=== PATIENT | male | born 1965 | race Caucasian/White ===

== ENCOUNTER 2020-01-27 12:30 | Outpatient (CLI) | payer OTHER, BC, SELFPAY ==
--- NOTE | ~2020-01-27 | MR_ITS ---
EXAMINATION: MR brain IAC wo con DATE: 01/27/2020 13:38 INDICATION: Headache. Dizziness and giddiness. TECHNIQUE: Magnetic resonance imaging (MRI) of the brain, brainstem, and internal auditory canals was performed without intravenous contrast. Sequences included sagittal and axial T1-weighted FSE, axial diffusion-weighted FS EPI, axial T2*-weighted GRE, axial T2-weighted FLAIR Propeller, axial T2-weigh tirso Propeller, small aydiw-ge-lnof coronal FIESTA, small scbot-ia-qwmy coronal T1-weighted FSE, and s mall eplwv-fw-digy axial T1-weighted SPGR. Apparent diffusion coefficient (ADC) maps were created. COMPARISON: None. FINDINGS: There is no intracranial hemorrhage, acute infarction, or abnormal intracranial mass lesion . The ventricles are normal in size. The orbits are normal. There is mild mucosal thickening in the e thmoid sinuses. The internal auditory canals and inner and middle ears are normal. The mastoid air ce lls are normal. IMPRESSION: 1. Normal brain. Reviewed, dictated and finalized at location A. IMPRESSION: 1. Normal brain.
== END 2020-01-27 12:31 | disposition home or self-care (01) ==
PROVIDERS: PCP Family Medicine; Visit Provider Physician Assistant
DX: R51 Headache (principal); R42 Dizziness and giddiness
CPT/HCPCS: 70551

== ENCOUNTER → 2021-05-10 00:25 | Outpatient (CLI) | payer OTHER, SELFPAY ==
[2021-05-10 21:59] LABS: SARS-CoV-2 RNA PCR Positive
== END ==
PROVIDERS: PCP Family Medicine; Visit Provider Physician Assistant
DX: U07.1 COVID-19 (principal)
CPT/HCPCS: C9803; U0003; U0005

== ENCOUNTER 2021-08-18 14:08 | Outpatient (RCR) | payer OTHER, SELFPAY ==
--- NOTE | 2021-08-18 15:44 | PTOPEVAL ---
PHYSICAL THERAPY EVALUATION Thank you for referring Anthony Jones to [facility].? Antonino was evaluated for the dx of BPPV/dizzinesss. The patient is scheduled to be seen for therapy?1x/week or prn per symptoms response, for up to 4 weeks. Please review, sign, date and return this plan of care LÓPEZ. I agree with and certify that the following plan of care is medically necessary. Referring Physician Date Attending Provider: KERRY RomanPT Outpatient Evaluation Start: 08/18/21 14:26 Freq: Status: Active Protocol: Document 08/18/21 14:26 MLV (Rec: 08/18/21 15:28 [facility] [id number]) Therapy Assessment Status Assessment Status Assessment Status Evaluation Evaluation Information Problem Diagnosis vertigo/possible BPPV Onset 06/24 Cause none Additional Evaluation Detail The patient reports a sudden onset dizziness starting in June. The patient had a bout of dizziness 5 years ago, received steroids and got better. He was given steroids again but it didn't work. The patient reports having symptoms with laying to his side, severe. The patient tried Kathryn exercises but it didn't help. The patient has had headaches but have gone away now. The dizziness has decreased in intensity and frequency, but still has occasions. 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 Pain Assessment Timing of Pain Assessment Timing of Pain Assessment Assessment Self Report Self Report Pain Level 0 Pain Score Pain Score 0: Self Report Cervical and Lumbar ROM Cervical ROM Reason Not Measured WFL/Left,WFL/Right Upper Extremity Range of Motion General Upper Extremity Range of Motion Reason Not Measured WFL/Left,WFL/Right Upper Extremity Muscle Strength Testing General Upper Extremity Strength Reason Not Measured WFL/Left,WFL/Right Posture Posture Standing Position Head/C-Spine Posture Forward Head Thoracic Spine Posture Neutral Lumbar Spine Posture Flattened Shoulder Posture (L) Rounded,(R) Rounded,(L) Forward,(R) Forward Scapula Posture (L) Protracted,(R) Protracted Arm Posture (L) Internally Rotated,(R)
--- NOTE | 2021-08-25 11:04 | PCPTNOTE ---
PT called patient to check on symptoms and status of tolerance to the exercise. The patient was unavailable-left message
--- NOTE | 2021-09-10 11:31 | PCPTNOTE ---
PHYSICAL THERAPY DISCHARGE Attending Provider: KERRY Roman Patient:Anthony Jones Date of :1965 Patient has not had relief of dizzy symptoms with vestibular exercises per phone conversation; therefore he will be discharged at this time. Patient?s initial visit was on 08/18/2021 14:30 and he had a total of 1 visits and 3 weekly phone checks. The goals have been partially met. Thank you for referring this patient to [facility]. Please review, sign, date and return this discharge summary LÓPEZ. I have been updated about the patient's current status and I agree with discharge from the above service at this time. Referring Physician Date
== END 2021-09-10 17:07 | disposition home or self-care (01) ==
LOC: ANHPT 14:08
PROVIDERS: PCP Family Medicine; Visit Provider Nurse Practitioner Family
DX: R42 Dizziness and giddiness (principal)
CPT/HCPCS: 97162

== ENCOUNTER 2022-01-21 07:57 | Outpatient (CLI) | payer OTHER, SELFPAY | END 2022-01-21 07:58 | disposition home or self-care (01) | LOC: ANHAUDIO 07:59 | PROVIDERS: PCP Family Medicine; Visit Provider Otolaryngology | DX: R42 Dizziness and giddiness (principal) | CPT/HCPCS: 99199 ==

== ENCOUNTER 2022-01-27 05:53 | Outpatient (CLI) | payer OTHER, SELFPAY | END 2022-01-27 05:54 | disposition home or self-care (01) | LOC: ANHAUDIO 05:55 | PROVIDERS: PCP Family Medicine; Visit Provider Otolaryngology | DX: R42 Dizziness and giddiness (principal) | CPT/HCPCS: 92537; 92540; 92546 ==

== ENCOUNTER 2023-05-31 02:55 | Day surgery (SDC) | payer OTHER, SELFPAY ==
[2023-05-17 14:18] VITALS: BMI 40.8
--- NOTE | 2023-05-28 16:17 | PM.HPGS ---
History of Present Illness History of Present Illness Consent: Risks, benefits, and alternatives have been discussed and questions answered. Patient agrees to proceed with procedure. Chief complaint: neoplasm screening Narrative: Anthony Jones is a 57 year old male Referred for colon cancer screening. He states that he had a colonoscopy about 10 years ago. Review of Systems Review of Systems: All systems reviewed & are unremarkable except as noted in HPI and below PMFSH Past Medical History Medical History (Updated 05/28/23 @ 16:18 by David Hirsch MD) Asthma Asthma exacerbation Dizziness Essential (primary) hypertension Fatty liver Headache HLD (hyperlipidemia) Hypertriglyceridemia IFG (impaired fasting glucose) Lateral epicondylitis of right elbow Metabolic syndrome Obesity BAY (obstructive sleep apnea) Primary osteoarthritis of right knee Pure hyperglyceridemia Surgical History Surgical History History of carpal tunnel release (~2001) History of elbow surgery (~2010) History of left knee replacement (~08/16/18) History of meniscectomy of left knee (~08/06/17) History of rectal sphincterotomy (~2009) Hx of meniscectomy of right knee (~06/26/16) Presence of left artificial knee joint Family History Family History Mother Family history of diabetes mellitus in first degree relative Father Family history of coronary artery disease Other Diabetes mellitus Family history of arthritis Social History Social History Smoking status: Never smoker Second hand tobacco smoke exposure: No Alcohol intake: current Drinks per week: 4 Substance use: never Substance use type: does not use Lack of Transportation: No Lack of Food: Never True Current Housing: I Have Housing Concerned About Future Housing: No Difficulty Paying Gas/Electric Bills: No Difficulty Paying for Meds: No Currently Unemployed: No Education: Associate Degree Difficulty w/ Childcare or Family Care: No Living arrangements: with family Occupation/Education: occupation Gender identity (if verbalized by the patient): Male Sexual Orientation (if Verbalized by the Patient): Straight or Heterosexual Spiritual care concerns: No Meds Home Medications and Allergies Home Medications Medication Instructions Recorded Confirmed Type aspirin 81 mg tablet,delayed 81 mg PO DAILY 09/07/19 05/31/23 History release (Aspir-Low) ascorbic acid (vitamin C) 1,000 mg 1 g PO DAILY 11/25/20 05/31/23 History tablet multivitamin (Daily Multi-Vitamin 1 tablet PO DAILY 11/25/20 05/31/23 History tablet) omega-3 fatty acids 1,000 mg 1,000 mg PO DAILY 11/25/20 05/31/23 History capsule albuterol sulfate 90 mcg/actuation 1 - 2 puff inhalation Q4H PRN 08/25/22 05/31/23 Rx aerosol inhaler (ProAir HFA) shortness of breath or wheezing #6.7 grams albuterol sulfate 2.5 mg/3 mL 2.5 mg (3 mL) inhalation Q4-6H PRN 09/01/22 05/31/23 Rx (0.083 %) solution for nebulization shortness of breath or wheezing #180 mL lisinopril 40 mg tablet See Rx Instructions .Route 11/05/22 05/31/23 Rx .COMPLEX #90 tabs alprazolam 0.5 mg tablet (Xanax) 0.5 mg PO DAILY PRN anxiety #30 03/23/23 05/31/23 Rx tabs Allergies Allergy/AdvReac Type Severity Reaction Status Date / Time levofloxacin Allergy Mild SUICIDAL Verified 05/31/23 08:53 THOUGHTS/HALLUCINATIONS oxycodone Allergy Mild DIZZINESS Verified 05/31/23 08:53 Quinolones Allergy Unknown suicidal Verified 05/31/23 08:53 thoughts/hallucinations Exam Const: General: alert Orientation/consciousness: patient oriented x3 Resp: Auscultation: clear to auscultation bilaterally Cardio: Rhythm: regular rhythm GI: GI Palp: Yes Soft to palpation and No Tenderness to palpation present (GI) Ne
[2023-05-31 08:56] VITALS: BP 154/85; PULSE 54; RESP 18; TEMP 36.1; O2SAT 99
[2023-05-31] MEDS: LACTATED RINGERS 1,000 ML 150 ML IV CONT (09:07)
--- NOTE | 2023-05-31 09:26 | WPDANESEPPF ---
Anes - Initial Pre Proc Eval Procedure: Operation Date: 05/31/23 10:00 Proposed Procedures p Screening Colonoscopy - David Hirsch MD Date/Time: 05/31/23 09:26 Surgeon: David Hirsch MD Pre Op Diagnosis: neoplasm screening Patient Data Age: 57 Gender: M Height: 1.78 m Weight: 125 kg Last Vital Signs Temp 96.9 F L 05/31/23 08:56 Pulse 54 L 05/31/23 08:56 Resp 18 05/31/23 08:56 BP 154/85 H 05/31/23 08:56 Pulse Ox 99 05/31/23 08:56 O2 Del Method Room Air 05/31/23 08:56 Allergies Allergy/AdvReac Type Severity Reaction Status Date / Time levofloxacin Allergy Mild SUICIDAL Verified 05/31/23 08:53 THOUGHTS/HALLUCINATIONS oxycodone Allergy Mild DIZZINESS Verified 05/31/23 08:53 Quinolones Allergy Unknown suicidal Verified 05/31/23 08:53 thoughts/hallucinations Home Medications Medication Instructions Recorded Confirmed Type aspirin 81 mg tablet,delayed 81 mg PO DAILY 09/07/19 05/31/23 History release (Aspir-Low) ascorbic acid (vitamin C) 1,000 mg 1 g PO DAILY 11/25/20 05/31/23 History tablet multivitamin (Daily Multi-Vitamin 1 tablet PO DAILY 11/25/20 05/31/23 History tablet) omega-3 fatty acids 1,000 mg 1,000 mg PO DAILY 11/25/20 05/31/23 History capsule albuterol sulfate 90 mcg/actuation 1 - 2 puff inhalation Q4H PRN 08/25/22 05/31/23 Rx aerosol inhaler (ProAir HFA) shortness of breath or wheezing #6.7 grams albuterol sulfate 2.5 mg/3 mL 2.5 mg (3 mL) inhalation Q4-6H PRN 09/01/22 05/31/23 Rx (0.083 %) solution for nebulization shortness of breath or wheezing #180 mL lisinopril 40 mg tablet See Rx Instructions .Route 11/05/22 05/31/23 Rx .COMPLEX #90 tabs alprazolam 0.5 mg tablet (Xanax) 0.5 mg PO DAILY PRN anxiety #30 03/23/23 05/31/23 Rx tabs Patient hx anesthesia problems: none Family hx anesthesia problems: none Results Review: All pre-operative results and documents have been reviewed as part of the pre-operative evaluation. [facility] Past Medical History Medical History (Updated 05/28/23 @ 16:18 by David Hirsch MD) Asthma Asthma exacerbation Dizziness Essential (primary) hypertension Fatty liver Headache HLD (hyperlipidemia) Hypertriglyceridemia IFG (impaired fasting glucose) Lateral epicondylitis of right elbow Metabolic syndrome Obesity BAY (obstructive sleep apnea) Primary osteoarthritis of right knee Pure hyperglyceridemia Surgical History Surgical History History of carpal tunnel release (~2001) History of elbow surgery (~2010) History of left knee replacement (~08/16/18) History of meniscectomy of left knee (~08/06/17) History of rectal sphincterotomy (~2009) Hx of meniscectomy of right knee (~06/26/16) Presence of left artificial knee joint Family History Family History Mother Family history of diabetes mellitus in first degree relative Father Family history of coronary artery disease Other Diabetes mellitus Family history of arthritis Social History Social History Smoking status: Never smoker Second hand tobacco smoke exposure: No Alcohol intake: current Drinks per week: 4 Substance use: never Substance use type: does not use Lack of Transportation: No Lack of Food: Never True Current Housing: I Have Housing Concerned About Future Housing: No Difficulty Paying Gas/Electric Bills: No Difficulty Paying for Meds: No Currently Unemployed: No Education: Associate Degree Difficulty w/ Childcare or Family Care: No Living arrangements: with family Occupation/Education: occupation Gender identity (if verbalized by the patient): Male Sexual Orientation (if Verbalized by the Patient): Straight or Heterosexual Spiritual care concerns: No Anes - Eval Final PreProcedure Day of Procedure 05/05
[2023-05-31] MEDS: SIMETHICONE ORAL SUSPENSION 20 MG/0.3 ML 30 ML BOTTLE 0.6 ML IRRIGATION (09:55)
[2023-05-31 10:08] VITALS: BP 105/67; PULSE 60; RESP 16; O2SAT 98
[2023-05-31 10:18] VITALS: BP 111/65; PULSE 59; RESP 18; O2SAT 98
[2023-05-31 10:28] VITALS: BP 121/68; PULSE 60; RESP 18; O2SAT 98
== END 2023-05-31 10:40 | disposition home or self-care (01) ==
PROVIDERS: PCP Family Medicine; Visit Provider Internal Medicine Gastroenterology
PROC: 0DJD8ZZ Inspection of Lower Intestinal Tract, Via Natural or Artificial Opening Endoscopic (ICD-10-PCS; CPT 45378; principal; 2023-05-31 10:00)
DX: Z12.11 Encounter for screening for malignant neoplasm of colon (principal); K57.30 Diverticulosis of large intestine without perforation or abscess without bleeding; D12.2 Benign neoplasm of ascending colon; D12.4 Benign neoplasm of descending colon; D12.5 Benign neoplasm of sigmoid colon; J45.909 Unspecified asthma, uncomplicated; I10 Essential (primary) hypertension; G47.33 Obstructive sleep apnea (adult) (pediatric); E78.1 Pure hyperglyceridemia; K76.0 Fatty (change of) liver, not elsewhere classified; E66.01 Morbid (severe) obesity due to excess calories; Z68.39 Body mass index [BMI] 39.0-39.9, adult; Z79.51 Long term (current) use of inhaled steroids; Z79.82 Long term (current) use of aspirin
CPT/HCPCS: 45385; 88305; J2704; J7120

== ENCOUNTER 2023-11-17 10:16 | Outpatient (CLI) | payer OTHER, SELFPAY ==
[2023-11-17 11:37] LABS: Influenza A QL RT-PCR Negative (Negative); Influenza B QL RT-PCR Negative (Negative); RSV RNA, RT-PCR Negative (Negative); SARS-CoV-2 RNA PCR Negative (Negative)
== END 2023-11-17 10:17 | disposition home or self-care (01) ==
PROVIDERS: PCP Family Medicine; Visit Provider Physician Assistant
DX: R05.9 Cough, unspecified (principal); R09.89 Other specified symptoms and signs involving the circulatory and respiratory systems; Z20.822 Contact with and (suspected) exposure to COVID-19
CPT/HCPCS: 87637

== ENCOUNTER → 2023-11-23 13:52 | Outpatient (CLI) | payer OTHER, SELFPAY ==
--- NOTE | ~2023-11-23 | XR_ITS ---
EXAMINATION: XR chest 2V DATE: 11/23/2023 14:09 INDICATION: Cough. Congestion. TECHNIQUE: Frontal and lateral views of the chest were obtained on 4 radiographs. COMPARISON: Chest 2 views 07/08/2019 FINDINGS: A calcified right lung nodule and calcified right hilar lymph nodes nodes are consistent wi th old granulomatous disease. No pleural effusion or pneumothorax. The heart size is normal. IMPRESSION: 1. No acute cardiopulmonary disease. Reviewed, dictated and finalized at location E. [facility]
== END ==
PROVIDERS: PCP Physician Assistant Medical; Visit Provider Physician Assistant Medical
DX: R06.2 Wheezing (principal); R05.9 Cough, unspecified
CPT/HCPCS: 71046

== ENCOUNTER 2024-02-14 15:27 | Outpatient (CLI) | payer OTHER, SELFPAY ==
--- NOTE | ~2024-02-14 | XR_ITS ---
EXAM: XR hand RT min 3V DATE: 02/14/2024 15:35 HISTORY: PAIN 1ST DIGIT RADIATING INTO WRIST NKI . COMPARISON: None available. FINDINGS: Normal mineralization. No fracture or dislocation. No lytic or blastic lesion. Mild scatte red arthritic changes, typical of osteoarthritis most notably involving the interphalangeal joints of the thumb and fingers, first CMC joint, and the first through fourth MCP joints. Hooked osteophyte a t the second metacarpal head. No erosion or periosteal change. Soft tissues within normal limits. IMPRESSION: Mild polyarticular osteoarthritis. Reviewed, dictated and finalized at location K.
== END 2024-02-14 15:28 | disposition home or self-care (01) ==
LOC: ANHIMG 15:28
PROVIDERS: PCP Family Medicine; Visit Provider Orthopaedic Surgery
DX: M19.041 Primary osteoarthritis, right hand (principal)
CPT/HCPCS: 73130

== ENCOUNTER 2024-04-18 07:59 | Outpatient (RCR) | payer OTHER, SELFPAY ==
[2024-04-18 09:19] VITALS: BMI 42.8
[2024-04-18 14:18] VITALS: BMI 42.8
== END 2024-07-03 10:38 | disposition home or self-care (01) ==
LOC: ANHDMC 07:59
PROVIDERS: PCP Family Medicine; Visit Provider Family Medicine
DX: E11.9 Type 2 diabetes mellitus without complications (principal); Z71.3 Dietary counseling and surveillance
CPT/HCPCS: 97802

== ENCOUNTER 2024-04-22 10:00 | Emergency (ER) | payer OTHER, SELFPAY ==
--- NOTE | ~2024-04-22 | XR_ITS ---
XR knee RT min 4V 04/22/2024 11:02 Indication: Twisting injury to the right knee Procedure: 4 views right knee Comparison: 11/27/2022 Findings: Moderate osteoarthritis of the right knee. Moderate joint effusion. No acute fracture or tr aumatic malalignment. No foreign bodies. Impression: 1: Moderate right knee effusion. 2: Moderate tricompartment osteoarthritis. Reviewed, dictated and finalized at location B. Impression: 1: Moderate right knee effusion. 2: Moderate tricompartment osteoarthritis.
--- NOTE | ~2024-04-22 | CT_ITS ---
EXAMINATION: CT knee RT wo con DATE: 04/22/2024 12:11 INDICATION: Possible occult fracture of the tibial plateau TECHNIQUE: Computed tomography (CT) of the right knee was performed without intravenous contrast. The dose-length product was 549.57 mGy-cm. Automated exposure control and iterative reconstruction technique were employed. COMPARISON: Right knee series dated 04/22/2024 and 11/27/2022 FINDINGS: There is subtle depression of the tibial plateau centrally with sclerotic margins. There is a subtle irregular lucency along the medial tibial plateau on the axial images. There is moderate os teoarthritis of the knee. There is a joint effusion. IMPRESSION: 1. Possible nondisplaced tibial plateau fracture medially. Recommend correlation with MRI. 2: Joint effusion. Reviewed, dictated and finalized at location B. IMPRESSION: 1. Possible nondisplaced tibial plateau fracture medially. Recommend correlatio n with MRI. 2: Joint effusion.
[2024-04-22 10:02] VITALS: BP 148/83; PULSE 65; RESP 18; TEMP 36.2; O2SAT 99
--- NOTE | 2024-04-22 11:39 | ED.LOWEXIN ---
HPI - Extremity Injury (Lower) General Chief Complaint: Extremity Injury, Lower Stated Complaint: fall, right leg injury Time Seen by Provider: 04/22/24 11:05 Source: patient and family () Mode of arrival: ambulatory Limitations: no limitations History of Present Illness HPI Narrative: Patient presents right at knee/leg pain after slipping and falling twisting his leg while using a ladder on a boat yesterday. He experiences pain at his knee when he plants his foot on the ground and this pain radiates throughout the knee and into the distal thigh. Exact Mechanism injury terms of his foot was planted at the time. No paresthesias. Patient took 600mg ibuprofen last night. Patient has a history of a left knee replacement and right knee arthroscopy with orthopedic surgeon Dr Farooq previously Related Data Home Medications Medication Instructions Recorded Confirmed aspirin 81 mg tablet,delayed 81 mg PO DAILY 09/07/19 04/11/24 release (Aspir-Low) ascorbic acid (vitamin C) 1,000 mg 1 g PO DAILY 11/25/20 04/11/24 tablet multivitamin (Daily Multi-Vitamin 1 tablet PO DAILY 11/25/20 04/11/24 tablet) omega-3 fatty acids 1,000 mg 1,000 mg PO DAILY 11/25/20 04/11/24 capsule Allergies Allergy/AdvReac Type Severity Reaction Status Date / Time levofloxacin Allergy Mild SUICIDAL Verified 04/22/24 10:55 THOUGHTS/HALLUCINATIONS oxycodone Allergy Mild DIZZINESS Verified 04/22/24 10:55 Quinolones Allergy Unknown suicidal Verified 04/22/24 10:55 thoughts/hallucinations metformin AdvReac Unknown malaise Verified 04/22/24 10:55 [facility] Past Medical History Medical History (Updated 04/23/24 @ 00:00 by Background Dabaylee) Asthma Asthma exacerbation Diabetes Dizziness Essential (primary) hypertension Fatty liver Headache HLD (hyperlipidemia) Hypertriglyceridemia IFG (impaired fasting glucose) Lateral epicondylitis of right elbow Metabolic syndrome Obesity BAY (obstructive sleep apnea) Primary osteoarthritis of right knee Pure hyperglyceridemia Surgical History Surgical History (Updated 04/23/24 @ 13:24 by Oriana Mota MD) History of arthroscopy of right knee Dr Farooq History of carpal tunnel release (~2001) History of elbow surgery (~2010) History of left knee replacement (~08/16/18) Dr Farooq History of meniscectomy of left knee (~08/06/17) History of rectal sphincterotomy (~2009) Hx of meniscectomy of right knee (~06/26/16) Presence of left artificial knee joint Family History Family History Mother Family history of diabetes mellitus in first degree relative Father Family history of coronary artery disease Other Diabetes mellitus Family history of arthritis Social History Social History Smoking status: Never smoker Second hand tobacco smoke exposure: No Alcohol intake: current Drinks per week: 4 Substance use: never Substance use type: does not use Lack of Transportation: No Lack of Food: Never True Current Housing: I Have Housing Concerned About Future Housing: No Difficulty Paying Gas/Electric Bills: No Difficulty Paying for Meds: No Currently Unemployed: No Education: Associate Degree Difficulty w/ Childcare or Family Care: No Living arrangements: with family Occupation/Education: occupation Gender identity (if verbalized by the patient): Male Sexual Orientation (if Verbalized by the Patient): Straight or Heterosexual Spiritual care concerns: No Exam Narrative: GENERAL: Well-appearing, well-nourished, and in no acute distress. HEAD: Normocephalic, atraumatic. EYES: Non injected, non icteric ENT: Nares clear, no rhinorrhea or epistaxis. NECK: Supple. CHEST: Speaking in full sentences. No respiratory distress. HEART/Cardiovascular: Regular rate and rhythm. Capillary refill in great toe of affected extremity ABD
[2024-04-22] MEDS: HYDROcodone/acetaminophen (*CRX) 5-325 MG TABLET 1 TAB PO (11:53)
== END 2024-04-22 13:10 | disposition home or self-care (01) ==
PROVIDERS: Emergency Provider Student in an Organized Health Care Education/Training Program; PCP Family Medicine
DX: S82.144A Nondisplaced bicondylar fracture of right tibia, initial encounter for closed fracture (principal); M17.11 Unilateral primary osteoarthritis, right knee; J45.909 Unspecified asthma, uncomplicated; I10 Essential (primary) hypertension; E11.9 Type 2 diabetes mellitus without complications; E78.5 Hyperlipidemia, unspecified; E66.9 Obesity, unspecified; Z68.41 Body mass index [BMI] 40.0-44.9, adult; Z96.652 Presence of left artificial knee joint; Z79.82 Long term (current) use of aspirin; Z79.899 Other long term (current) drug therapy; V93.39XA Fall on board unspecified watercraft, initial encounter
CPT/HCPCS: 73564; 73700; 99284; A9270

== ENCOUNTER 2024-04-28 12:22 | Outpatient (CLI) | payer OTHER, SELFPAY ==
--- NOTE | ~2024-04-28 | XR_ITS ---
XR tibia fibula RT 2V Ordering provider: Rui Farooq MD History: . PATIENT HAVING LATERAL PAIN 3 INCHES ABOVE ANKLE JOINT . Comparison: None. FINDINGS: BONES: No acute fracture or dislocation. Calcaneal spur. Ossification of the insertion of the tendo Achilles. JOINT SPACES: Mild osteoarthritic changes of the knee joint. SOFT TISSUES: Normal. IMPRESSION: No acute osseous abnormality right leg. Reviewed, dictated and finalized at location A.
== END 2024-04-28 12:23 | disposition home or self-care (01) ==
PROVIDERS: PCP Family Medicine; Visit Provider Orthopaedic Surgery
DX: S82.131A Displaced fracture of medial condyle of right tibia, initial encounter for closed fracture (principal); X58.XXXA Exposure to other specified factors, initial encounter
CPT/HCPCS: 73590

== ENCOUNTER 2025-03-01 12:17 | Outpatient (CLI) | payer OTHER, SELFPAY ==
--- NOTE | ~2025-03-01 | XR_ITS ---
CHEST RADIOGRAPH, PA AND LATERAL CLINICAL HISTORY: J45.901 - Unspecified asthma with (acute) exacerbation . COMPARISON: 11/23/2023 TECHNIQUE: PA and lateral views of the chest. FINDINGS The cardiomediastinal silhouette is unremarkable. Trace peribronchial thickening. The lungs are otherwise clear. IMPRESSION: Trace peribronchial thickening, without focal infiltrate or effusion. Reviewed, dictated and finalized at location A.
--- OUTSIDE RECORDS SUMMARY | 2025-03-01 12:21 | XMS_ITS | Continuity of Care Document ---
Author Organization [employer] Address [address] [place] [address] Phone Care Team Providers Care Metal Melter Name Role Phone Ophelia Owen MD Unavailable Unavailable Allergies, Adverse Reactions, Alerts Substance Reaction Status Criticality oxycodone HOSPITAL RECEIVING CLERK Active No Information levofloxacin HOSPITAL RECEIVING CLERK Active No Information ciprofloxacin HOSPITAL RECEIVING CLERK Active No Information CIPROFLOXACIN HCL HOSPITAL RECEIVING CLERK Active No Informa tion dextromethorphan HOSPITAL RECEIVING CLERK Active No Informat ion Medications Medication Instructions Dosage Effective Dates (start - stop) Status Comments LISINOPRIL 40 MG TABLET TAKE ONE TABLET BY MOUTH ONCE DAILY, APPT./LABS DUE EVERY 6 MO - Active ALPRAZOLAM 0.5 MG TABLET take 1 tablet (0.5MG) by mouth TID as needed for anxiety. - Active Pharmacy = [facility]: [phone] ZOFRAN ODT 4 mg Tab, Rapid Dissolve take 1 Tablet (4MG) by oral route every 6 hours dissolve on tongue then swallow as needed for NAUSEA AND VOMITING 4 MG - Active ADVAIR 100-50 DISKUS 1 puff by inhalation route twice daily. (Rinse mouth after each use.) - Active aspirin 81 mg tablet,delayed release take 1 tablet (81MG) by oral route every day 81 MG - Active FLONASE 0.05% NASAL SPRAY 2 QD - No Longer Active Advance Directives Directive Yes / No Effective Date File Name No Information Encounters Encounter Description Practice Location Reason(s) For Visit Diagnoses Date Provider Providers Copied on Encounter [employer] [facility], [address], [place], [place], [address] , [place] tel: [phone] [facility] No Information 3 Brayden Jacinto. [address] [facility], [address], [place], [place], [address]. tel:[phone] [facility], [address], [place], [place], [address] , [place] tel: [phone] [facility] No Information 3 Brayden Jacinto. [address] [facility], [address], [place], [place], [address]. [phone] [facility], [address], [place], [place], [address] , [place] tel: [phone] [facility] Acute pharyngitis 3 Brayden Jacinto. [address] [facility], [address], [place], [place], [address]. tel:[phone] Referring Provider: Ophelia Owen [address] [place] [address] [address] [facility], [place], [address] . tel:[phone] [facility], [address], [place], [place], [address] , [place] tel: [phone] [facility] Abdominal pain, epigastricGeneraliz ed anxiety disorder 3 Brayden Jacinto. [address] [facility], [address], [place], [place], [address]. tel:[phone] Referring Provider: Ophelia Owen [address] [place] [address] [address], [place], [address] . tel:[phone] [facility], [address], [place], [place], [address] , [place] tel:[phone] [facility] Unspecified essential hypertensionAllergi c rhinitis, cause unspecifiedAnxiety state, unspecifiedASTHMA,U NSPECIFIED TYPE, UNSPECIFIED 2 Brayden Jacinto. [address] [facility], [address], [place], [place], [address]. tel:[phone] Referring Provider: Ophelia Owen [address] [facility] [address], [place], [address] . tel:[phone] [facility], [address], [place], [place], [address] , [place] tel: [phone] [facility] No Information 2 Brayden Jacinto. [address] [facility], [facility] [address], [place], [place], [address]. [phone] [facility], [address], [place], [place], [address] , [place] tel: [phone] [facility] Lump or mass in breastScreening for lipoid disorders Jan-0 2 Brayden Jacinto. [address] [facility], [place] [address], [place], [place], [address]. [phone] Referring Provider: Ophelia Owen, [address] [place] [address], [place], [address] . tel:[phone] [facility], [address], [place], [place], [address] , [place] tel: [phone] [facility] No Information 0 2 Brayden Jacinto. [address] [facility], [place] [address], [place], [place], [address]. tel:[phone] [facility], [address], [place], [place], [address] , [place] tel: [phone] [facility] HYPERTENSION NOS 1 Conversion Doctor. [address] [facility], [place], [address], [place]. [facility], [address], [place], [place], [address] , [place] tel: [phone] [facility] CHRONIC OBST ASTHMA NOSDECREASED LIBIDOFAM HX-DIABETES MELLITUSALLERGIC RHINITIS NOS 1 Brayden Antunez [address] [facility], [place] [address], [place], [place], [address]. [phone] [facility], [address], [place], [place], [address] , [place] tel:[phone] [facility] ASTHMA NOS Feb- 1 Brayden Antunez [address] [facility], [place] [address], [place], [place], [address]. tel:[phone] [employer] [facility], [address], [place], [place], [address] , [place] tel: [phone] Castillo No Information 2-200 8 Brayden Hussein [facility], [place] [address], [place], [place], [address]. tel:[phone] [employer] [facility], [address], [place], [address] , [place] tel: [phone] [facility] No Information 4200 8 Brayden Hussein [facility], [place] [address], [place], [place], [address]. tel:[phone] [employer] [facility], [address], [place], [place], [address] , [place] tel: [phone] [facility] ANXIETY STATE NOS Sep-0 4 [address] [place] [address], [place] [address], [place], [place], [address]. tel:[phone] [employer] [facility], [address], [place], [place], [address] , [place] tel: [phone] [facility] OBSTRUCTIVE SLEEP APNEA Dec-0 2-200 6 Brayden Antunez [address] [place] [address], [place] [address], [place], [place], [address]. tel:[phone] [employer] [facility], [address], [place], [address] , [place] tel: [phone] [facility] OBESITY NOS 3200 6 Brayden Antunez [address] [place] [address], [place] [address], [place], [place], [address]. tel:[phone] [employer], [address], [place], [address] , [place] tel: [phone] [facility] FAM HX-ISCHEM HEART DIS 8200 5 Brayden Antunez [address] [place] [address], [place] [address], [place], [place], [address]. tel:[phone] Family History Family Member Type Diagnosis Age At Onset Problem (finding) Family history of osteo arthritis Problem (finding) Family history of coronary arteriosclerosis Family h/o Problem (finding) DIABETES MELLITUS Family h/o Problem (finding) ISCHEMIC HEART DISEASE( IHD) Problem (finding) Family history of Diabe ky mellitus Payers Payer name Insurance type Covered libertarian ID Authoriza tironni(s) [employer] INA[employer]IVE [employer] [id number] 1 Social History Type Description Quantity Date Captured Comments Sex Male Smoking Status No Information Sexual Orientation Straight or heterosexual Chief Complaint And Reason For Visit No Information Reason For Referral Reason For Referral No Information History Of Present Illness Encounter Date Complaint History Of Prese nt Illness No Information Functional Status Date Functional Assessmen t No Information Instructions Date Instruction Additional Infor mation No Information Assessments Type Assessment Date No Information Patient Care Teams Name Effective Dates (start - stop) Status Members No Information
--- OUTSIDE RECORDS SUMMARY | 2025-03-01 12:21 | XMS_ITS | Clinical Summary ---
Author Organization [facility] Address [address] 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
--- OUTSIDE RECORDS SUMMARY | 2025-03-01 12:21 | XMS_ITS | Encounter Summary ---
Author Organization [facility] Address [address] [facility] [place] [address] Care Team Providers Care Erection Shop Supervisor Name Role Phone Unavailable Primary Care Provider Unavailabl e Encounter Details Date Type Department Care Team (Late st Contact Info) Description 02/22/2023 Lab Requisition [facility] - DermPath Lab [address] [facility], [place] [address] Savannah Ware DO [address] [facility] [address] [place] [address] Social History Tobacco Use Types Packs/Day Years Used Date Smoking Tobacco: Never Assessed Sex and Gender Information Value Date Recorded Sex Assigned at Not on file 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 Received: 02/22/2023 12:41 PM Pathologist: Erick Chanel MD Specimen: Skin, right cheek 1:28 PM CDT DERMATOPATHOLOGY LABORATORY Final Diagnosis Specimen A. SKIN, right cheek: SEBACEOUS HYPERPLASIA (L73.8) 1:28 PM CDT DERMATOPATHOLOGY LABORATORY at 1328 CDT Clinical History Blanca vs. Sebh R/O Atypia 3 1:28 PM CDT DERMATOPATHOLOGY LABORATORY Gross Description Specimen A: Received is one formalin filled container labeled with the patient's name and designated right cheek. The specimen consists of a shave biopsy measuring 4x4x1 mm. Jar 0. 3 1:28 PM CDT DERMATOPATHOLOGY LABORATORY Microscopic Description Specimen A. SKIN, right cheek: There are prominent sebaceous gland lobules surrounding a dilated hair follicle. 3 1:28 PM CDT DERMATOPATHOLOGY LABORATORY Disclaimer An external and internal positive and negative controls are appropriate for the histochemical, immunohistochemical and immunofluorescence stain(s) in this case (if any), except where stated explicitly. The performance characteristics of the stain(s) cited in this report were developed and its performance characteristic determined by the Dermatopathology Laboratory at [facility], directed by Dr. Aliya Chanel. These tests need not be, and therefore are not, approved by the [place] Food and Drug Administration. The tests are used for clinical purposes. Billing Codes Specimen Charges Stain Charges 02205 1 3 1:28 PM CDT DERMATOPATHOLOGY LABORATORY Embedded Images 3 1:28 PM CDT DERMATOPATHOLOGY LABORATORY Pathology/Cytolo gy TISSUE SPECIMEN FROM SKIN / Unknown 02/22/2023 8:45 AM CDT 02/22/2023 12:41 PM CDT us Savannah Ware DO LAB - PATHOLOGY/CYTOLOGY ORDERABLES Final Result DERMATOPATHOLOGY LABORATORY [facility] - Department of Dermatology [address], [address] [phone] documented in this encounter Visit Diagnoses Not on filedocumented in this encounter
--- OUTSIDE RECORDS SUMMARY | 2025-03-01 12:21 | XMS_ITS | Continuity of Care Document ---
Author Organization [facility] Address [address] [place] [address] Phone Care Team Providers Care Operations Forester Name Role Phone Administrative, Provider Unavailable Unavail able Allergies, Adverse Reactions, Alerts Substance Reaction Status Criticality cephalexin Bizarre thoughts, wierd feelings Active No Information levofloxacin Bizarre thoughts, wierd feelings Active No Information Medications Medication Instructions Dosage Effective Dates (start - stop) Status Comments Mobic 15 mg tablet take 1 tablet by oral route every day 1 po daily 15 MG - Active Mobic 15 mg tablet take 1 tablet by oral route every day 1 po daily 15 MG - Active lisinopril 40 mg tablet - Active multivitamin tablet - Active CALCIUM (unknown strength) Not Available - Active VITAMIN E (unknown strength) Not Available - Active VITAMIN C (unknown strength) Not Available - Active GLUCOSAMINE-CHONDROI TIN (unknown strength) Not Available - Active OMEGA-3 FISH OIL (unknown strength) Not Available - Active Procedures Procedure Date Xray Copy Office/outpatient visit,est, low 2015 Euflexxa Asp/inject major joint or bursa w/o US g uidance Euflexxa Drain/inject major jointor bursa w/o US guidance Euflexxa Drain/inject major jointor bursa w/o US guidance X-ray exam both knees, standing 016 Depo Medrol Methylprednisolone 40 MG inj Asp/inject major joint or bursa w/o US g uidance Office/outpatient visit,est, low 2015 Office/outpatient visit,est, mod 2015 Office/outpatient visit,est, mod 2015 X-ray exam of thoracic 2 views 15 Office/outpatient visit,est, mod 2014 Office/outpatient visit,est, mod 2014 Office/outpatient visit,est, mod 2014 MRI lower extrm joint, w/o contrast X-ray exam knee, 1 or 2 views 5 X-ray exam both knees, standing 015 Office/outpatient visit,est, mod 2014 Office/outpatient visit,new, mod 2012 Office/outpatient visit,est, mod 2012 Office/outpatient visit,est, mod 2012 Office/outpatient visit,est, mod 2012 X-ray exam of thoracic 2 views 13 Office/outpatient visit,est, mod 2012 Postop followup visit Postop followup visit Postop followup visit Tenotomy, Elbow, Lat Or Med, Percutaneou s Office/outpatient visit,est, low 2010 Office/outpatient visit,est, low 2009 Drain/inject intermed joint/bursa Depo Medrol Methylprednisolone 40 MG inj X-ray exam of elbow, complete 0 Office/outpatient visit,est, low 2008 X-ray exam of knee, 1 or2 views 009 X-ray exam of both knees, standing Office/outpatient visit,est, mod 2006 X-ray exam of shoulder, complete 2006 Office/outpatient visit,est, mod 2005 X-ray exam of knee, 1 or2 views 006 X-ray exam of both knees, standing Advance Directives Directive Yes / No Effective Date File Name No Information Encounters Encounter Description Practice Location Reason(s) For Visit Diagnoses Date Provider Providers Copied on Encounter [facility], [address], [id number], [place] tel:[phone] [facility] No Information 6 Administrati ve Provider. [address], [id number], [place]. tel:[phone] Office/outpa tient visit,est, low [facility], [address], [id number], [place] tel:[phone] [facility] right knee symptoms (chief complaint) Unilateral primary osteoarthritis , right knee 6 Boby Pak. [address], [id number], [place]. tel:[phone] [facility], [address], [id number], [place] tel:[phone] [facility] right knee (chief complaint) Unilateral primary osteoarthritis , right knee 6 Boby Pak. [address], [id number], [place]. tel:[phone] [facility], [address], [id number], [place] tel:[phone] [facility] Right Knee (chief complaint) Unilateral primary osteoarthritis , right knee 6 Boby Pak. [address], [id number], [place]. tel:[phone] [facility], [address], [id number], [place] tel:[phone] [facility] Bilateral Knees (chief complaint) Unilateral primary osteoarthritis , right knee 6 Boby Pak. [address], [id number], [place]. tel:[phone] [facility], [address] [address], [place], [place], [id number], [place] tel:[phone] [facility] Unilateral primary osteoarthritis , right knee 6 Boby Pak. [address] [facility] [address], [place], [place], [id number], [place]. tel:[phone] Office/outpa tient visit,est, low [facility], [address] [address], [place], [place], [id number], [place] tel:[phone] [facility] right knee symptoms (chief complaint) Pain in right kneeARTHROPATH Y NOS-L/LEG Jan- 6 Boby Pak. [address], [id number], [place]. tel:[phone] [place] [facility] [place] [facility], [address] [address], [place], [place], [id number], [place] tel:[phone] [facility] Other spondylosis, thoracic region Fe 6 Haris Du. [address], [id number], [place]. tel:[phone] [place]pa [place] visit[place]est, [facility] [place] [facility], [address], [id number], [place] tel:[phone] [facility] Pain in thoracic spine 5 Haris Du. [address] [address], [place], [place], [id number], [place]. tel:[phone] [place]est, [facility] [place] [facility], [address] [place] [address], [id number], [place] tel:[phone] [facility] WC- right knee injury (chief complaint) Pain in right knee Sep- 5 Boby Pak. [address] [facility], [facility] [address], [place], [place], [id number], [place]. tel:[phone] Office[place]pa [place]ient visit,est, [facility] [place] [facility], [address] [address], [place], [place], [id number], [place] tel:[phone] [facility] MRI results - right knee (chief complaint) Pain in right knee 5 Boby Pak. [address] [facility] [address], [place], [place], [id number], [place]. tel:[phone] [facility], [address] [address], [place], [place], [id number], [place] tel:[phone] [facility] Pain in right knee 5 [facility]. [address] [place] [address], [address], [place], [place], [id number], [place]. tel:[phone] Referring Provider: Pasha Escobedo, [facility] [address], [place], [address] . tel:[phone] Office[place]pa [place]ient visit,est, [facility] [place] [facility], [address] [place] [address], [place], [place], [id number], [place] tel:[phone] [facility] right knee pain (chief complaint) Pain in right knee 5 Boby Pak. [address] [facility], [facility] [address], [place], [place], [id number], [place]. tel:[phone] Office/outpa [place]ient visit,new, [facility] [place] [facility], [address] [address], [place], [place], [id number], [place] tel:[phone] [facility] SPRAIN THORACIC REGIONPAIN IN THORACIC SPINETHORACIC SPONDYLOSIS 3 Kuldip Esparza. [address] [facility], [facility] [address], [place], [place], [id number], [place]. tel:[phone] Referring Provider: Italia Barnes, [address] [facility] [address], [place], [address] . tel:[phone] Office[place]outpa [place]ient visit,est, [facility] [place] [facility], [address] [address], [place], [place], [id number], [place] tel:[phone] [facility] PAIN IN THORACIC SPINETHORACIC SPONDYLOSIS 3 Haris Florian. [address] [facility], [address] [address], [place], [place], [id number], [place]. tel:[phone] Office/outpa tient visit,est, [employer] [facility], [address] [address], [place], [place], [id number], [place] tel:[phone] [facility] thoracic spine pain (chief complaint) PAIN IN THORACIC SPINETHORACIC SPONDYLOSIS 3 Haris Du. [address] [address], [place], [place], [id number], [place]. tel:[phone] Office/outpa tient visit,est, [employer] [facility], [address] [address], [place], [place], [id number], [place] tel:[phone] [facility] PAIN IN THORACIC SPINETHORACIC SPONDYLOSIS 3 Abeln Italia. [address] [facility], [address] [address], [place], [place], [id number], [place]. tel:[phone] Office/outpa [place]ient visit,est, [facility] [place] [facility], [address] [address], [place], [place], [id number], [place] tel:[phone] [facility] thoracic spine (chief complaint) PAIN IN THORACIC SPINEBackacheT HORACIC SPONDYLOSIS 3 Abeln Italia. [address] [facility], [address] [address], [place], [place], [id number], [place]. tel:[phone] [facility], [address] [address], [place], [place], [id number], [place] tel:[phone] [facility] LATERAL EPICONDYLITIS 1 Boby Pak. [address] [facility], [address], [place], [place], [id number], [place]. tel:[phone] [facility], [address] [address], [place], [place], [id number], [place] tel:[phone] [facility] LATERAL EPICONDYLITIS Fe- 1 Boby Pak. [address] [facility], [address], [place], [place], [id number], [place]. tel:[phone] [facility], [address] [address], [place], [place], [id number], [place] tel:[phone] [facility] LATERAL EPICONDYLITIS 0 1 Boby Pak. [address] [address], [place], [place], [id number], [place]. tel:[phone] [facility], [address] [address], [place], [place], [id number], [place] tel:[phone] [facility] LATERAL EPICONDYLITIS 3 1 Boby Pak. [address] [address], [place], [place], [id number], [place]. tel:[phone] Office/outpa tient visit,[facility], [address], [id number], [place] tel:[phone] [facility] JOINT PAIN-UP/ARMLAT ERAL EPICONDYLITIS 0 7 1 Boby Pak. [address] [facility], [address], [place], [place], [id number], [place]. tel:[phone] Office/outpa tient visit,est, [facility], [address] [address], [place], [place], [id number], [place] tel:[phone] [facility] LATERAL EPICONDYLITISJ OINT PAIN-UP/ARM Jul-2 2-201 0 Boby Pak. [address] [facility], [address], [place], [place], [id number], . tel:[phone] Office/outpa tient visit,est, [facility], [address], [id number], tel:[phone] [facility] No Information 9 Boby Pak. [address] [address], [place], [place], [id number], [place]. tel:[phone] Office/outpa tient visit,[facility], [address], [id number], tel:[phone] [facility] No Information 7 Boby Pak. [address] [address], [place], [place], [id number], [place]. tel:[phone] Referring Provider: Ophelia Owen [address] [place] [address], [address]. tel:[phone] Office/outpa tient visit,[facility], [address], [id number], [place] tel:[phone] [facility] No Information 6 Boby Pak. [address], [id number], . tel:[phone] Referring Provider: Ophelia Owen [address], [address]. tel:[phone] Family History Family Member Type Diagnosis Age At Onset Problem (finding) Family history of Heart trouble Mother Problem (finding) Arthritis Mother Problem (finding) Diabetes mellitus Mother Problem (finding) hypertension Immunizations Vaccine Date Status Comments Flu (split) (3 yrs or older) administered Source: Other Provider Flu (split) (3 yrs or older) refused Source: Source Unspecified Payers Payer name Insurance type Covered libertarian ID Authoriza tion(s) No Information Social History Type Description Quantity Date Captured Comments Sex Male Smoking Status No Information Chief Complaint And Reason For Visit No Information Reason For Referral Reason For Referral No Information Plan Of Treatment Date Type Action Status Referral Ordered: Synvisc One RT knee ordered Referral Ordered: X-ray exam knee, 1 or 2 views RT ordered Referral Ordered: X-ray exam both knees, standing ordered Referral Ordered: MRI lower extrm joint, w/o contrast RT knee Appointment date/timeframe: 08/16/2015 ordered Referral Ordered: Other Appointment date/timeframe: 10/02/2013 ordered Referral Ordered: MRI thoracic spine W/Wo Contrast Appointment date/timeframe: 09/20/2013 ordered Referral Ordered: X-ray exam of thoracic 2 views ordered Patient Education Body Mass Index: After Your Visit completed Patient Education Body Mass Index: After Your Visit completed Patient Education Stopping Smoking: After Your Visit completed Patient Education Body Mass Index: After Your Visit completed Patient Education Body Mass Index: After Your Visit completed Patient Education Back Pain: After Your V isit completed Patient Education Stopping Smoking: After Your Visit completed Patient Education Body Mass Index: After Your Visit completed Patient Education Body Mass Index: After Your Visit completed Patient Education Stopping Smoking: After Your Visit completed Patient Education Back Pain: After Your V isit completed Patient Education Body Mass Index: After Your Visit completed Patient Education Body Mass Index: After Your Visit completed History Of Present Illness Encounter Date Complaint History Of Prese nt Illness right knee symptoms Anthony come s back into the office for his right knee pain. He has been treating with LATISHA/PA but prefers to see the doctor today. He has been treated with cortisone on 01-30-16 and Euflexxa series of 3 injections in Nov and December. right knee Anthony returns to the office today for 3/3 right knee Euflexxa injection. Right Knee Anthony returns to the office today for his right knee osteoarthritis. He is requesting his 2/3 Euflexxa injection. Bilateral Knees Mr. Jones comes into the office today for his right knee osteoarthritis. He is requesting his first of 3 Euflexxa injection. right knee symptoms Antonino pa b ack into the office complaining of right knee pain. He was seen in the office in August and did get better with therapy. He reports that his pain started again in December. He denies new trauma but does state that he has started walking with his to lose weight which has been advised by his primary doctor. He states he has been having the same pain over the lateral aspect of his knee which he did back in August. A MRI at that time. Due to his continued symptoms, with the patients permission a standing xray was done of his knees today. WC- right knee injury Antonino comes back into the office for his right knee injury which occured at work on 06-16-15. He has been going to therapy and his note is here for review. MRI results - right knee Antonino co mes into the office today to go over the MRI which was done this morning. right knee pain Anthony Jones is a 49 year old male. He reports that he was running on an incline and hyperextended his knee about 3 months ago. He states he tried ice and felt it would get better but did not. 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 He has not had any treatment yet. Xray of his right knee was obtained in the office today. He presents with pain and decreased rom on the right side. He states that the symptoms have been chronic traumatic. He indicates the injury occurred during sports Anthony states that the symptoms began as the result of running. The symptoms occur constantly. The problem is worse. Currently the patient states that the symptoms are moderate-severe. The pain is described as aching and discomforting. The symptoms occur continuously. He also reports additional pain in the lateral aspect on the right side. He rates his worst pain as 7/10. Anthony states that the symptoms are relieved by sitting. Functional Status Date Functional Assessmen t No Information Instructions Date Instruction Additional Infor mation No Information Assessments Type Assessment Date No Information Patient Care Teams Name Effective Dates (start - stop) Status Members No Information
--- OUTSIDE RECORDS SUMMARY | 2025-03-01 12:22 | XMS_ITS | Clinical Summary ---
Author Organization [facility] [address] Address [address] [place] [address] Care Team Providers Care Motor Tester Name Role Phone Alvaro Garcia MD Primary Care Provider Adri Aldrich DPT Unavailable Allergies Active Allergy Reactions Criticality Noted Date Comments Ciprofloxacin Hallucinations Medium 09/14/2008 Dextromethorphan Mental status changes Low 08/27/20 08 Levofloxacin Hallucinations Medium 09/14/2008 Oxycodone Mental status changes Low 09/14/2008 Medications ascorbic acid (vitamin C) 1,000 mg tablet take 1 by Oral route once 0 0 7 Active Additional Information Patient taking differently:1,000 mgDaily, Reported on 03/23/2022 lisinopril (PRINIVIL,ZESTR IL) 40 mg tablet take 1 tablet by oral route every day 0 0 7 Active multivitamin tablet tablet take 1 by Oral route once 0 0 7 Active aspirin (ASPIR-81) 81 mg tablet take 1 Tablet by oral route every day 0 0 7 Active omega-3 fatty acids-fish oil 300-1,000 mg capsule Take 2 g by mouth daily Active albuterol sulfate (VENTOLIN HFA INHAL) daily as needed Acti ve ALPRAZolam (XANAX) 0.5 mg tablet as needed Active AMOXICILLIN 500 mg capsule daily as needed Prior to dental work 0 Active cholecalciferol (Vitamin D3) 400 unit capsule 2 Active predniSONE (DELTASONE) 10 mg tabletIndicatio ns:Acute Pain Take 3 twice daily 4 days, then take 2 twice daily for 3 days, then take 1 twice daily 3 days. 42 tablet 2 Active HYDROcodone-luke taminophen (NORCO) 5-325 mg per tabletIndicatio ns:Pain Take 1 tablet by mouth daily as needed for pain 10 tablet 2 Active Active Problems Problem Noted Date Diagnosed Date Benign paroxysmal positional vertigo of left ear 06/17/2022 COVID-19 long hauler manifesting chronic loss of smell 04/03/2022 Chronic right-sided thoracic back pain 9 Encounters Date Type Department Care Team Description 02/14/2025 Orders Only [facility] Otolaryngology [address] [place] [address], [facility] [address] [place] [address] Sara Jeronimo RMA Benign paroxysmal positional vertigo, unspecified laterality (Primary Dx) 02/01/2025 4:00 PM CDT Therapy [facility] Physical Therapy [address] [place] [phone] Adri Aldrich DPT Benign paroxysmal vertigo, unspecified laterality (Primary Dx) 01/24/2025 2:00 PM CDT - 01/24/2025 11:59 PM CDT Hospital Encounter [facility] [address] [place] [address] Discharge Disposition: Discharge to home or self care 01/19/2025 8:00 AM CDT Therapy [facility] Physical Therapy [address] [place] [phone] Adri Aldrich DPT Benign paroxysmal vertigo, unspecified laterality (Primary Dx) 01/07/2025 Plan of Care Documentation [facility] Physical Therapy [address] [place] [phone] 01/05/2025 9:00 AM CDT Therapy [facility] Physical Therapy [address] [place] [phone] Adri Aldrich DPT Benign paroxysmal vertigo, unspecified laterality (Primary Dx) from Last 3 Months Surgical History Surgery Date Site/Laterality Comments KNEE ARTHROSCOPY Right ELBOW SURGERY CARPAL TUNNEL RELEASE KNEE ARTHROPLASTY 10/04/2017 - 10/03/2018 Left EPIDURAL INJECTION RIGHT CER VICAL THORACIC 1 LEVEL 08/11/2019 Right Medical History Medical History Date Comments Hypertension Arthritis Family History Medical History Relation Name Comments Heart failure Father 2 Congestive hea rt failure; Cause of : Congestive heart failure Diabetes Mother 2 Diabetes mellit ; Cause of : Diabetes mellitus Relation Name Status Comments Father 1 (Age 80) Father 2 Mother 1 (Age 78) Mother 2 Social History Tobacco Use Types Packs/Day Years Used Date Smoking Tobacco: Never Smokeless Tobacco: Never Alcohol Use Standard Drinks/Week Comments No 0 (1 standard drink = 0.6 oz pur e alcohol) AUDIT-C Answer Date Recorded Q1: How often do you have a drink containing alc ohol? 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 Not on file Not on file N ot on file Obstetrics History Last Filed Vital Signs Vital Sign Reading Time Taken Comments Blood Pressure 122/82 01/19/2025 8:05 AM CDT Pulse 55 01/19/2025 8:05 AM CDT Temperature - - Respiratory Rate - - Oxygen Saturation 96% 01/19/2025 8:05 AM CDT Inhaled Oxygen Concentration - - Weight 137 kg (302 lb) 03/23/2022 12:13 PM CDT Height 175.3 cm (5' 9) 03/23/2022 12:13 PM CDT Body Mass Index 44.6 03/23/2022 12:13 PM CDT Plan of Treatment Health Maintenance Due Date Last Done Comments Colon Cancer Screening-Colonoscopy 1963 Depression Screening 1963 Hepatitis C Screening 1963 Prostate Cancer Screening-PSA 1963 DTaP/Tdap/Td Vaccine (1 - Tdap) 12/30/1974 Hepatitis B Screening 12/30/1981 Regular Well Visit/Exam 18-64 12/30/1981 Zoster Vaccine (1 of 2) 12/30/2013 Influenza Vaccine (Season Ended) 2025 Pneumococcal vaccine <65 Aged Out No longer eligible based on patient's age to complete this topic Medical Devices Implanted Type Area [employer] Mechanical Device Identifier Shelf Expiration Date Model / Serial / Lot Left Knee Replaced 2017 Left: Knee Procedures Procedure Name Priority Date/Time Associated Diagnosis Comments LEAD, BLOOD Routine 01/24/2025 2:00 PM CDT from Last 3 Months Results * Lead, blood (01/24/2025 2:00 PM CDT) Lead <1.0 <3.5 mcg/dL [place] [facility] Comment: ADDITIONAL INFORMATION Testing performed by Inductively Coupled Plasma-Mass Spectrometry (ICP-MS). This test was developed and its performance characteristics determined by [facility] in a manner consistent with CLIA requirements. This test has not been cleared or approved by the U.S. Food and Drug Administration. Interpretive Data Testing performed by: [facility], [place] [address]. Blood 01/24/2025 2:00 PM CDT 01/24/2025 8:05 PM CDT Mikayla [facility] - 01/27/2025 11:12 AM CDT sent 3.0 mls metal free K2EDTA whole blood in original container us [place] NP LAB BLOOD ORDERABLES Final Res ult [facility]AR[facility] [place] [address] [place] [facility] from Last 3 Months Insurance [facility] CHOICE PLUS [facility] CHOICE PLUS [address] [facility] CHOICE PLUS CHOICE PLUS Member Subscriber Plan / Payer (Ef fective 2016-Present) Name:Robert Anthony K Relation to Subscriber:Self Name:Anthony [employer] Payer ID:[id number] (NAIC) Type:[facility] HMO/PPO Address: [address] Care Teams Motor Tester Relationship Specialty Start Date End Date Alvaro Garcia MD [address] [facility] [address] [place], [place] [phone] PCP - General 07/06/17 Adri Aldrich DPT [address] [facility] [address] [place] [address] Physical Therapist Physical Therapy 07/31/22
--- OUTSIDE RECORDS SUMMARY | 2025-03-01 12:22 | XMS_ITS | Referral Summary ---
Author Organization [facility] [address] Address [address] [place] [address] Care Team Providers Care Shell Sieve Operator Name Role Phone Alvaro Garcia MD Primary Care Provider Adri Aldrich DPT Unavailable [phone] Encounters Date Type Department Care Team Description 02/14/2025 Orders Only [facility] Otolaryngology [address] [place] [address], [facility] [address] [place] [address] Sara Jeronimo RMA Benign paroxysmal positional vertigo, unspecified laterality (Primary Dx) 02/01/2025 4:00 PM CDT Therapy [facility] Physical Therapy [address] [place] [phone] Adri Aldrich DPT Benign paroxysmal vertigo, unspecified laterality (Primary Dx) 01/24/2025 2:00 PM CDT - 01/24/2025 11:59 PM CDT Hospital Encounter [address] [address] Discharge Disposition: Discharge to home or self care 01/19/2025 8:00 AM CDT Therapy [facility] Physical Therapy [address] [place] [phone] Adri Aldrich DPT Benign paroxysmal vertigo, unspecified laterality (Primary Dx) 01/07/2025 Plan of Care Documentation [facility] Physical Therapy [address] [place] [phone] 01/05/2025 9:00 AM CDT Therapy [facility] Physical Therapy [address] [facility] [address] [place] [address] Adri Aldrich, DPMarilou Benign paroxysmal vertigo, unspecified laterality (Primary Dx) from Last 3 Months Allergies Active Allergy Reactions Criticality Noted Date [...] 04/03/2022 Chronic right-sided thoracic back pain 9 Social History Tobacco Use Types Packs/Day Years [...] on file Legal Sex Male 9:41 AM VP SOFTWARE SUPPORT Gender Identity Male 08/20/2020 7:37 AM VP SOFTWARE SUPPORT Sexual Orientation Choose not to disclose 2019 9:09 AM VP SOFTWARE SUPPORT 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 Not on file Not on file N ot on file Last Filed Vital Signs Vital Sign Reading [...] 03/23/2022 12:13 PM CDT Plan of Treatment Not on file Medical Devices Implanted Type Area Oyster Unloader Device Identifier Shelf Expiration Date Model / Serial / Lot Left Knee Replaced 2017 Left: Knee Procedures Procedure Name Priority Date/Time Associated Diagnosis Comments LEAD, BLOOD Routine 01/24/2025 2:00 PM CDT from Last 3 Months Results * Lead, blood (01/24/2025 2:00 PM CDT) Lead <1.0 <3.5 mcg/dL [place] [facility] Comment: ADDITIONAL INFORMATION Testing performed by Inductively Coupled Plasma-Mass Spectrometry (ICP-MS). This test was developed and its performance characteristics determined by [facility] in a manner consistent with CLIA requirements. This test has not been cleared or approved by the U.S. Food and Drug Administration. Interpretive Data Testing performed by: [facility], [place] [address]. Blood 01/24/2025 2:00 PM CDT 01/24/2025 8:05 PM CDT Mikayla GUERRA - 01/27/2025 11:12 AM CDT sent 3.0 mls metal free K2EDTA whole blood in original container us [employer] HORSE TRAINER LAB BLOOD ORDERABLES Final Res ult KARUNA CR[facility] Department [place] [address] [place] [facility] from Last 3 Months Insurance [facility] CHOICE PLUS [facility] CHOICE PLUS [facility] CHOICE PLUS CHOICE PLUS [facility] Care Teams Shell Sieve Operator Relationship Specialty Start Date End Date Alvaro Garcia MD [address] [place] [address] PCP - General 07/06/17 Adri Aldrich DPT [address] [facility] [address] [place] [address] Physical Therapist Physical Therapy 07/31/22
--- OUTSIDE RECORDS SUMMARY | 2025-03-01 12:22 | XMS_ITS | Clinical Summary ---
Author Organization [facility] Address [address] [facility] [place] [place] [address] Care Team Providers Care Hydraulic Press Tender Name Role Phone Unavailable Primary Care Provider Unavailabl e Source Comments [facility],non-owned Affiliates and Associated Physician Practices is amultiple site organization consisting of ambulatory clinics and hospital sitesin [place], [place], [place] and [place]. This disclosure is being madepursuant to the Care Everywhere program and may not contain all information available regarding this patient. 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 Gender Identity Not on file Sexual Orientation Not on file Plan of Treatment Health Maintenance Due Date Last Done Comments COLOGUARD (AGES 45-75) - COL ON CA SCREENING 1963 COLON MONITORING 1963 COLONOSCOPY - COLON CA SCREENING 1963 CT COLONOGRAPHY - COLON CA SCREENING 1963 Colorectal Cancer Screening 1963 FIT - COLON CA SCREENING 1963 FLEX SIG - COLON CA SCREENING 1963 LIPID TESTING 1963 HIV SCREENING 12/30/1978 HEPATITIS C SCREENING 12/26/1981 DTAP/TDAP/TD VACCINES (1 - Tdap) 12/30/1982 PNEUMOCOCCAL VACCINE 50+ (1 of 1 - PCV) 12/30/2013 ZOSTER VACCINE (1 of 2) 12/30/2013 COVID-19 VACCINE ( - 2023-2 5 season) 2024 DEPRESSION SCREENING 10/04/2024 INFLUENZA VACCINE (Season Ended) 2025 Respiratory Syncytial Virus (RSV) Vaccine Pt: or over 60 yrs (1 - 1-dose 75+ series) 12/30/2038 HEPATITIS B VACCINE Aged Out No longe r eligible based on patient's age to complete this topic HIB VACCINE Aged Out No longer eligi ble based on patient's age to complete this topic HPV VACCINE Aged Out No longer eligi ble based on patient's age to complete this topic MENINGOCOCCAL (Group B) VACC INE SHARED DECISION-MAKING Aged Out No longer eligibl e based on patient's age to complete this topic MENINGOCOCCAL GROUPS A/C/Y/W VACCINE Aged Out No longer eligible b ased on patient's age to complete this topic Insurance CARE CARE CARE
--- OUTSIDE RECORDS SUMMARY | 2025-03-01 12:22 | XMS_ITS | Encounter Summary ---
Author Organization [facility] Address [address] [place] [address] Care Team Providers Care Stock Parts Fabricator Name Role Phone Unavailable Primary Care Provider Unavailabl e Encounter Details Date Type Department Care Team (Late st Contact Info) Description 12/04/2005 Outpatient Historical [facility] [place] 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
== END 2025-03-01 12:18 | disposition home or self-care (01) ==
PROVIDERS: PCP Family Medicine
DX: J45.901 Unspecified asthma with (acute) exacerbation (principal); R05.9 Cough, unspecified
CPT/HCPCS: 71046

== ENCOUNTER 2025-03-05 09:20 | Outpatient (CLI) | payer OTHER, SELFPAY ==
--- NOTE | ~2025-03-05 | CT_ITS ---
CT Scan of the Chest without Contrast: Clinical Indication: Dyspnea Technique: Contiguous sections were acquired throughout the chest without intravenous contrast. Dose reduction technique was used on this scan by utilizing automated exposure control and iterative recon struction technique. The dose-length product (DLP) was 688.33 mGy-cm. Findings: There is no evidence of any significant mediastinal, hilar or axillary lymphadenopathy. Coronary vinicius ry calcifications are present. There is no evidence of pleural or pericardial effusion. Calcified right upper lobe granuloma present. Lungs are otherwise clear. Images through the upper abdomen reveal no abnormalities. Impression: No significant abnormalities seen. Reviewed, dictated and finalized at location . Impression: No significant abnormalities seen.
== END 2025-03-05 09:21 | disposition home or self-care (01) ==
LOC: MICIMG 09:21
PROVIDERS: PCP Family Medicine
DX: R06.00 Dyspnea, unspecified (principal)
CPT/HCPCS: 71250

== ENCOUNTER 2025-03-06 20:32 | Emergency (ER) | payer OTHER, SELFPAY ==
--- NOTE | ~2025-03-06 | CT_ITS ---
Clinical Indication: Cough, shortness of breath CT Scan of the Chest with Contrast: Technique: Contiguous sections were acquired throughout the chest after intravenous administration of 75 cc of Omnipaque 350. Dose reduction technique was used on this scan by utilizing automated exposu re control and iterative reconstruction technique. The dose-length product (DLP) was 916.20 mGy-cm. COMPARISON: 03/05/2025 Findings: There is no evidence of any significant mediastinal, hilar or axillary lymphadenopathy. There is no f illing defect in the pulmonary arterial tree to suggest pulmonary embolus. There is no evidence of ao rtic dissection or aneurysm. There is no evidence of pleural or pericardial effusion. The lungs are clear, aside from calcified right upper lobe granuloma. Images through the upper abdomen reveal no abnormalities. Impression: No significant abnormality seen. Reviewed, dictated and finalized at [facility]. Impression: No significant abnormality seen.
--- NOTE | ~2025-03-06 | XR_ITS ---
XR chest 2V Ordering provider: Satish Beard MD History: 59 years Male with . cough . Comparison: March 01, 2025 FINDINGS: MEDIASTINUM: The cardiac silhouette is not enlarged. LUNGS: No infiltrates, effusions or pneumothorax. Tiny granuloma seen in the right upper lobe area. OTHER: No free air under the diaphragm. Degenerative changes of the spine. IMPRESSION: No acute cardiopulmonary pathology. Reviewed, dictated and finalized at location [facility].
--- OUTSIDE RECORDS SUMMARY | 2025-03-06 20:34 | XMS_ITS | Continuity of Care Document ---
Author Organization [facility] Address [address] [facility] [address] [place] [address] Phone Care Team Providers Care Sexual Abuse Counsellor Name Role Phone Administrative, Provider Unavailable Unavail [...] Date Provider Providers Copied on Encounter [facility], [address], [id number], [place] tel:[phone] [facility] No Information 6 Administrati ve Provider. [address], [id number], [place]. tel:[phone] Office/outpa tient visit,est, low [facility], [address], [id number], [place] tel:[phone] [facility] right knee symptoms (chief complaint) Unilateral primary osteoarthritis , right knee 6 Boby Pak. [address], [id number], [place]. tel:[phone] [facility], [address], [id number], [place] tel:[phone] [facility] right knee (chief complaint) Unilateral primary osteoarthritis , right knee 6 Boby Pak. [address], [id number], [place]. tel:[phone] [facility], [address], [id number], [place] tel:[phone] [facility] Right Knee (chief complaint) Unilateral primary osteoarthritis , right knee 6 Boby Pak. [address], [id number], [place]. tel:[phone] [facility], [address], [id number], [place] tel:[phone] [facility] Bilateral Knees (chief complaint) Unilateral primary osteoarthritis , right knee 6 Boby Pak. [address], [id number], [place]. tel:[phone] [facility], [address] [address], [place], [place], [address], [place] tel:[phone] [facility] Unilateral primary osteoarthritis , right knee 6 Boby Pak. [address] [facility] [address], [place], [place], [address], [place]. tel:[phone] Office/outpa tient visit,est, low [facility], [address] [address], [place], [place], [address], [place] tel:[phone] [facility] right knee symptoms (chief complaint) Pain in right kneeARTHROPATH Y NOS-L/LEG Jan- 6 Boby Pak. [address], [id number], [place]. tel:[phone] Office/outpa tient visit,est, [facility], [address] [address], [place], [place], [address], [place] tel:[phone] [facility] Other spondylosis, thoracic region Fe 6 Haris Du. [address], [id number], [place]. tel:[phone] Office/outpa tient visit,est, [facility], [address], [id number], [place] tel:[phone] [facility] Pain in thoracic spine 5 Haris Du. [address] [address], [place], [place], [address], [place]. tel:[phone] Office/outpa tient visit,est, [facility], [address] [place] [address], [id number], [place] tel:[phone] [facility] WC- right knee injury (chief complaint) Pain in right knee Sep- 5 Boby Pak. [address] [facility], [facility] [address], [place], [place], [address], [place]. tel:[phone] Office/outpa tient visit,est, [facility], [address] [address], [place], [place], [id number], [place] tel:[phone] [facility] MRI results - right knee (chief complaint) Pain in right knee 5 Boby Pak. [address] [facility] [address], [place], [place], [address], [place]. tel:[phone] [facility], [address] [address], [place], [address], [place] tel:[phone] [facility] Pain in right knee 5 [facility]. [address] [place] [address], [address], [place], [place], [address], [place]. tel:[phone] Referring Provider: Pasha Escobedo, [facility] [address], [place], [address] . tel:[phone] Office/outpa tient visit,est, [facility], [address] [place] [address], [place], [place], [address], [place] tel:[phone] [facility] right knee pain (chief complaint) Pain in right knee 5 Boby Pak. [address] [facility], [facility] [address], [place], [place], [address], [place]. tel:[phone] Office/outpa tient visit,new, [facility], [address] [address], [place], [place], [address], [place] tel:[phone] [facility] SPRAIN THORACIC REGIONPAIN IN THORACIC SPINETHORACIC SPONDYLOSIS 3 Kuldip Esparza. [address] [facility], [facility] [address], [place], [place], [address], [place]. tel:[phone] Referring Provider: Italia Barnes, [address] [facility] [address], [place], [address] . tel:[phone] Office/outpa tient visit,est, [facility], [address] [address], [place], [place], [address], [place] tel:[phone] [facility] PAIN IN THORACIC SPINETHORACIC SPONDYLOSIS 3 Haris Florian. [address] [facility], [address] [address], [place], [place], [address], [place]. tel:[phone] Office/outpa tient visit,est, [facility], [address] [address], [place], [place], [address], [place] tel:[phone] [facility] thoracic spine pain (chief complaint) PAIN IN THORACIC SPINETHORACIC SPONDYLOSIS 3 Haris Du. [address] [address], [place], [place], [address], [place]. tel:[phone] Office/outpa tient visit,est, [facility], [address] [address], [place], [place], [address], [place] tel:[phone] [facility] PAIN IN THORACIC SPINETHORACIC SPONDYLOSIS 3 Abeln Italia. [address] [facility], [address] [address], [place], [place], [address], [place]. tel:[phone] Office/outpa tient visit,est, [facility], [address] [address], [place], [place], [address], [place] tel:[phone] [facility] thoracic spine (chief complaint) PAIN IN THORACIC SPINEBackacheT HORACIC SPONDYLOSIS 3 Abeln Italia. [address] [facility], [address] [address], [place], [place], [address], [place]. tel:[phone] [facility], [address] [address], [place], [place], [address], [place] tel:[phone] [facility] LATERAL EPICONDYLITIS 1 Boby Pak. [address] [facility], [address], [place], [place], [address], [place]. tel:[phone] [facility], [address] [address], [place], [place], [address], [place] tel:[phone] [facility] LATERAL EPICONDYLITIS Fe- 1 Boby Pak. [address] [facility], [address], [place], [place], [address], [place]. tel:[phone] [facility], [address] [address], [place], [place], [address], [place] tel:[phone] [facility] LATERAL EPICONDYLITIS 0 1 Boby Pak. [address] [address], [place], [place], [address], [place]. tel:[phone] [facility], [address] [address], [place], [place], [address], [place] tel:[phone] [facility] LATERAL EPICONDYLITIS 3 1 Boby Pak. [address] [address], [place], [place], [address], [place]. tel:[phone] Office/outpa tient visit,[facility], [address], [id number], [place] tel:[phone] [facility] JOINT PAIN-UP/ARMLAT ERAL EPICONDYLITIS 0 7 1 Boby Pak. [address] [facility], [address], [place], [place], [address], [place]. tel:[phone] Office/outpa tient visit,est, [facility], [address] [address], [place], [place], [address], [place] tel:[phone] [facility] LATERAL EPICONDYLITISJ OINT PAIN-UP/ARM Jul-2 2-201 0 Boby Pak. [address] [facility], [address], [place], [place], [address], . tel:[phone] Office/outpa tient visit,est, [facility], [address], [id number], tel:[phone] [facility] No Information 9 Boby Pak. [address] [address], [place], [place], [address], [place]. tel:[phone] Office/outpa tient visit,[facility], [address], [id number], tel:[phone] [facility] No Information 7 Boby Pak. [address] [address], [place], [place], [address], [place]. tel:[phone] Referring Provider: Ophelia Owen [address] [place] [address], [address]. tel:[phone] Office/outpa tient visit,[facility], [address], [id number], [place] tel:[phone] [facility] No Information 6 Boyb Pak. [address], [id number], . tel:[phone] Referring Provider: Ophelia Owen [address], [address]. tel:[phone] Family History Family Member Type Diagnosis Age At Onset Problem (finding) Family history of Heart trouble Mother Problem (finding) Arthritis Mother Problem (finding) Diabetes mellitus Mother Problem (finding) hypertension Immunizations Vaccine Date Status Comments Flu (split) (3 yrs or older) administered Source: Other Provider Flu (split) (3 yrs or older) refused Source: Source Unspecified Payers Payer name Insurance type Covered alliance party ID Authoriza tion(s) No Information Social History [...] but did not. 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
--- OUTSIDE RECORDS SUMMARY | 2025-03-06 20:34 | XMS_ITS | Continuity of Care Document ---
Author Organization [facility] Address [address] [place] [address] Phone Care Team Providers Care Dynamics Ax Technical Architect Name Role Phone Ophelia Owen MD Unavailable Unavailable Allergies, Adverse Reactions, Alerts Substance Reaction Status Criticality oxycodone PRINTER'S ASSISTANT Active No Information levofloxacin PRINTER'S ASSISTANT Active No Information ciprofloxacin PRINTER'S ASSISTANT Active No Information CIPROFLOXACIN HCL PRINTER'S ASSISTANT Active No Informa tion dextromethorphan PRINTER'S ASSISTANT Active No Informat ion Medications Medication Instructions Dosage Effective Dates (start - stop) Status Comments LISINOPRIL 40 MG TABLET TAKE ONE TABLET BY MOUTH ONCE DAILY, APPT./LABS DUE EVERY 6 MO - Active ALPRAZOLAM 0.5 MG TABLET take 1 tablet (0.5MG) by mouth TID as needed for anxiety. - Active Pharmacy = [facility]: Fax: ZOFRAN ODT 4 mg Tab, Rapid Dissolve [...] Diagnoses Date Provider Providers Copied on Encounter [facility], [address], [place], [place], [address] , [place] tel: [phone] [facility] No Information 3 Brayden Jacinto. [address] [facility], [address], [place], [place], [address]. tel:[phone] [facility], [address], [place], [place], [address] , [place] tel: [phone] [facility] No Information 3 Brayden Jacinto. [address] [facility], [address], [place], [place], [address]. [phone] [facility], [address], [place], [place], [address] , [place] tel: [phone] [facility] Acute pharyngitis 3 Brayden Jacinto. [address] [facility], [address], [place], [place], [address]. tel:[phone] Referring Provider: Ophelia Owen [address] [place] [address] Suite [facility], [place], [address] . tel:[phone] [facility], [address], [place], [place], [address] , [place] tel: [phone] [facility] Abdominal pain, epigastricGeneraliz ed anxiety disorder 3 Brayden Jacinto. [address] [facility], [address], [place], [place], [address]. tel:[phone] Referring Provider: Ophelia Owen [address] [place] [address] [address], [place], [address] . tel:[phone] [facility], [address], [place], [place], [address] , [place] tel:[phone] [facility] Unspecified essential hypertensionAllergi c rhinitis, cause unspecifiedAnxiety state, unspecifiedASTHMA,U NSPECIFIED TYPE, UNSPECIFIED 2 Brayden Jacinto. [address] [facility], [address], [place], [place], [address]. tel:[phone] Referring Provider: Ophelia Owen [address] [facility] [address], [place], [address] . tel:[phone] [facility], [address], [place], [place], [address] , [place] tel: [phone] [facility] No Information 2 Brayden Jacinto. [address] [facility], [facility] 100, [place], [place], [address]. [phone] [facility], [address], [place], [place], [address] , [place] tel: [phone] [facility] Lump or mass in breastScreening for lipoid disorders Jan-0 2 Brayden Jacinto. [address] [facility], [address] [address], [place], [place], [address]. [phone] Referring Provider: Ophelia Owen, [address] [place] [address], [place], [address] . tel:[phone] [facility], [address], [place], [place], [address] , [place] tel: [phone] [facility] No Information 0 2 Brayden Jacinto. [address] [facility], [address] [address], [place], [place], [address]. tel:[phone] [facility], [address], [place], [place], [address] , [place] tel: [phone] [facility] HYPERTENSION NOS 1 Conversion Doctor. [address] [facility], [place], [address], [place]. [facility], [address], [place], [place], [address] , [place] tel: [phone] [facility] CHRONIC OBST ASTHMA NOSDECREASED LIBIDOFAM HX-DIABETES MELLITUSALLERGIC RHINITIS NOS 1 Brayden Antunez [address] [facility], [address] [address], [place], [place], [address]. [phone] [facility], [address], [place], [place], [address] , [place] tel:[phone] [facility] ASTHMA NOS Feb- 1 Brayden Antunez [address] [facility], [address] [address], [place], [place], [address]. tel:[phone] [facility], [address], [place], [place], [address] , [place] tel: [phone] [facility] No Information 2-200 8 Brayden Hussein [facility], [address] [address], [place], [place], [address]. tel:[phone] [facility], [address], [place], [place], [address] , [place] tel: [phone] [facility] No Information 4200 8 Brayden Hussein [facility], [address] [address], [place], [place], [address]. tel:[phone] [facility], [address], [place], [place], [address] , [place] tel: [phone] [facility] ANXIETY STATE NOS Sep-0 [address] [place] [address], [address] [address], [place], [place], [address]. tel:[phone] [facility], [address], [place], [place], [address] , [place] tel: [phone] [facility] OBSTRUCTIVE SLEEP APNEA Dec-0 2-200 6 Brayden Antunez [address] [place] [address], [address] [address], [place], [place], [address]. tel:[phone] [facility], [address], [place], [place], [address] , [place] tel: [phone] [facility] OBESITY NOS 3200 6 Brayden Antunez [address] [place] [address], [address] [address], [place], [place], [address]. tel:[phone] [facility], [address], [place], [place], [address] , [place] tel: [phone] [facility] FAM HX-ISCHEM HEART DIS 8200 5 Brayden Antunez [address] [place] [address], [address] [address], [place], [place], [address]. tel:[phone] Family History Family Member Type Diagnosis Age At Onset Problem (finding) Family history of osteo arthritis Problem (finding) Family history of coronary arteriosclerosis Family h/o Problem (finding) DIABETES MELLITUS Family h/o Problem (finding) ISCHEMIC HEART DISEASE( IHD) Problem (finding) Family history of Diabe ky mellitus Payers Payer name Insurance type Covered constitution party ID Authoriza tironni(s) BCBS INACTIVE AN[employer]M [employer]IANCE [id number] 1 Social History Type Description Quantity Date [...]
--- OUTSIDE RECORDS SUMMARY | 2025-03-06 20:34 | XMS_ITS | Clinical Summary ---
Author Organization [facility] Address [address] [facility] [place] [address] Care Team Providers Care Collar Tacker Name Role Phone Unavailable Primary Care Provider Unavailabl e Source Comments [facility],non-owned Affiliates and Associated Physician Practices is amultiple site organization consisting of ambulatory clinics and hospital sitesin [place], [place], [place] and [place]. This disclosure is being madepursuant to the Care Everywhere program and may not contain all information available regarding this patient. 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
--- OUTSIDE RECORDS SUMMARY | 2025-03-06 20:34 | XMS_ITS | Encounter Summary ---
Author Organization [facility] Address [address] [place] [address] Care Team Providers Care Charter Coach Driver Name Role Phone Unavailable Primary Care Provider Unavailabl e Encounter Details Date Type Department Care Team (Late st Contact Info) Description 12/04/2005 Outpatient Historical [facility] [place] 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
--- OUTSIDE RECORDS SUMMARY | 2025-03-06 20:34 | XMS_ITS | Clinical Summary ---
Author Organization [facility] [address] Address [address] [place] [address] Care Team Providers Care Mental Measurements Teacher Name Role Phone Alvaro Garcia MD Primary [...] Department Care Team Description 02/14/2025 Orders Only [facility] Otolaryngology [address] [place] [address], [facility] [address] [place] [address] Sara Jeronimo RMA Benign paroxysmal positional vertigo, unspecified laterality (Primary Dx) 02/01/2025 4:00 PM CDT Therapy [facility] Physical Therapy [address] [place] [address] Adri Aldrich DPT Benign paroxysmal vertigo, unspecified laterality (Primary Dx) 01/24/2025 2:00 PM CDT - 01/24/2025 11:59 PM CDT Hospital Encounter [facility] [address] [place] [address] Discharge Disposition: Discharge to home or self care 01/19/2025 8:00 AM CDT Therapy [facility] Physical Therapy [address] [place] [address] Adri Aldrich DPT Benign paroxysmal vertigo, unspecified laterality (Primary Dx) 01/07/2025 Plan of Care Documentation [facility] Physical Therapy [address] [place] [id number] 01/05/2025 9:00 AM CDT Therapy [facility] Physical Therapy [address] [place] [address] Adri Aldrich DPT Benign paroxysmal vertigo, unspecified [...] on file 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 Gender Identity Male 08/20/2020 7:37 AM FACTORY ENGINEER Sexual Orientation Choose not to disclose 2019 9:09 AM FACTORY ENGINEER 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 This test was developed and its performance characteristics determined by [facility] in a manner consistent with CLIA requirements. This test has not been cleared or approved by the U.S. Food and Drug Administration. Interpretive Data Testing performed by: [facility], [place] [address]. Blood 01/24/2025 2:00 PM CDT 01/24/2025 8:05 PM CDT Mikayla [facility] - 01/27/2025 11:12 AM CDT sent 3.0 mls metal free K2EDTA whole blood in original container us [place] NP LAB BLOOD ORDERABLES Final Res ult [facility] Department [place] [address] [facility] from Last 3 Months Insurance [facility] CHOICE PLUS [facility] CHOICE PLUS [address] [facility] CHOICE PLUS CHOICE PLUS Member Subscriber Plan / Payer (Ef fective 2016-Present) Name:Robert Anthony K Relation to Subscriber:Self Name:Anthony [employer] Payer ID:[id number] (NAIC) Type:[facility] HMO/PPO Address: [address] Care Teams Mental Measurements Teacher Relationship Specialty Start Date End Date Alvaro Garcia MD [address] [facility] [address] [place], [place] [id number] PCP - General 07/06/17 Adri Aldrich DPT [address] [facility] [address] [facility] [address] [place] [address] Physical Therapist Physical Therapy 07/31/22
--- OUTSIDE RECORDS SUMMARY | 2025-03-06 20:34 | XMS_ITS | Clinical Summary ---
Author Organization [facility] Address [address] [address] 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
--- OUTSIDE RECORDS SUMMARY | 2025-03-06 20:34 | XMS_ITS | CONTINUITY OF CARE DOCUMENT ---
Author Name nia kramer Address Unknown Organization [facility] Address [address] [facility] [address] [place] [address] Phone [phone] Care Team Providers Care Watershed Program Manager Name Role Phone CARMELLA ANGLIN MD Unavailable [phone] FREEDOM COLORADO MD Unavailable INSURANCE PROVIDERS Payer name Policy type / Coverage type [place] red constitution party ID [facility] [id number]
--- OUTSIDE RECORDS SUMMARY | 2025-03-06 20:34 | XMS_ITS | Referral Summary ---
Author Organization [facility] [address] Address [address] [place] [address] Care Team Providers Care Clam Shucking Machine Tender Name Role Phone Alvaro Garcia MD Primary Care Provider Adri Aldrich DPT Unavailable [phone] Encounters Date Type Department Care Team Description 02/14/2025 Orders [address] [facility] Otolaryngology [address] [place] [address], [facility] [address] [place] [address] Sara Jeronimo RMA Benign paroxysmal positional vertigo, unspecified laterality (Primary Dx) 02/01/2025 4:00 PM CDT Therapy [facility] Physical Therapy [address] [place] [phone] Adri Aldrich DPT Benign paroxysmal vertigo, unspecified laterality (Primary Dx) 01/24/2025 2:00 PM CDT - 01/24/2025 11:59 PM CDT Hospital Encounter [address] [address] Discharge Disposition: Discharge to home or self care 01/19/2025 8:00 AM CDT Therapy [facility] Physical Therapy [address] [place] [phone] Adri Aldrich DPT Benign paroxysmal vertigo, unspecified laterality (Primary Dx) 01/07/2025 Plan of Care Documentation [facility] Physical Therapy [address] [place] [phone] 01/05/2025 9:00 AM CDT Therapy 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 This test was developed and its performance characteristics determined by [facility] in a manner consistent with CLIA requirements. This test has not been cleared or approved by the U.S. Food and Drug Administration. Interpretive Data Testing performed by: [facility], [place] [address]. Blood 01/24/2025 2:00 PM CDT 01/24/2025 8:05 PM CDT Mikayla GUERRA - 01/27/2025 11:12 AM CDT sent 3.0 mls metal free K2EDTA whole blood in original container us [employer] CLERK TELEGRAPH SERVICE LAB BLOOD ORDERABLES Final Res ult KARUNA CROW One [facility] Department [place] [address] [place] ref [facility] from Last 3 Months Insurance [facility] CHOICE PLUS [facility]ICE PLUS [facility] CHOICE PLUS CHOICE PLUS [facility] Care Teams Clam Shucking Machine Tender Relationship Specialty Start Date End Date Alvaro Garcia MD [address] [place] [address] PCP - General 07/06/17 Adri Aldrich DPT [address] [facility] [address] [place] [address] Physical Therapist Physical Therapy 07/31/22
--- OUTSIDE RECORDS SUMMARY | 2025-03-06 20:34 | XMS_ITS | Encounter Summary ---
Author Organization [facility] Address [address] [place] [address] Care Team Providers Care Director Child Development Center Name Role Phone Unavailable Primary Care Provider Unavailabl e Encounter Details Date Type Department Care Team (Late st Contact Info) Description 02/22/2023 Lab Requisition [facility] - DermPath Lab [address] 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..] characteristic determined by the Dermatopathology Laboratory at [facility], directed by Dr. Aliya Chanel. These tests need not be, and therefore are not, approved by the [place] Food and Drug Administration. The tests are used for clinical purposes. Billing Codes Specimen Charges Stain Charges 12118 1 3 1:28 PM CDT DERMATOPATHOLOGY LABORATORY Embedded Images 3 1:28 PM CDT DERMATOPATHOLOGY LABORATORY Pathology/Cytolo gy TISSUE SPECIMEN FROM SKIN / Unknown 02/22/2023 8:45 AM CDT 02/22/2023 12:41 PM CDT us Savannah Ware DO LAB - PATHOLOGY/CYTOLOGY ORDERABLES Final Result DERMATOPATHOLOGY LABORATORY [facility] - Department of Dermatology [address], [address] [phone] documented in this encounter Visit Diagnoses Not on filedocumented in this encounter
--- NOTE | 2025-03-06 20:45 | ECG_ITS ---
Test Date: 2025-03-06 20:52:45 Measurements Intervals [place] Rate: 82 P: 46 ME: 155 QRS: -24 QRSD: 104 T: 9 QT: 363 QTc: 426 Interpretive Statements SINUS RHYTHM BORDERLINE R WAVE PROGRESSION, ANTERIOR LEADS BORDERLINE ECG No previous ECG available for comparison Electronically Signed On 03-07-2025 06:30:03 CDT by Rubin Reyes D.O.
[2025-03-06 20:48] VITALS: BP 165/76; PULSE 81; RESP 23; TEMP 36.2; O2SAT 98
[2025-03-06 21:08] LABS: Basophils Absolute Auto 0.1 K/mm3 (0.0-0.1); Basophils Percent Auto 0.6 % (0.2-1.2); Eosinophils Absolute Auto 0.1 K/mm3 (0-0.3); Eosinophils Percent Auto 0.5 % (0-4.4); Hematocrit 43.9 % (42.0-52.0); Hemoglobin 14.5 g/dL (14.0-18.0); Immature Granulocyte Percent A 3.6 % (0-0.5); Lymphocytes Absolute Auto 2.73 K/mm3 (0.9-3.2); Lymphocytes Percent Auto 24.6 % (18.3-44.2); Mean Corpuscular Hemoglobin 31.5 pg (26-34); Mean Corpuscular Volume 95.4 fl (80-100); Mean Platelet Volume 9.7 fl (7.4-10.4); Monocytes Absolute Auto 0.7 K/mm3 (0.1-0.6); Neutrophils Absolute Auto 7.2 K/mm3 (1.3-6.7); Neutrophils Percent Auto 64.7 % (45.5-73.1); Platelet Count Result 204 k/mm3 (150-375); White Blood Count 11.1 K/mm3 (4.5-10.0)
[2025-03-06 21:30] LABS: Alanine Aminotransferase 46 U/L (6-50); Albumin Level 4.1 g/dL (3.5-5.1); Alkaline Phosphatase 44 U/L (38-126); Anion Gap 9 mmol/L (4-12); Aspartate Amino Transferase 38 U/L (17-59); Bilirubin,Total 0.6 mg/dL (0.2-1.3); Blood Urea Nitrogen 22 mg/dL (9-20); Carbon Dioxide 24 mmol/L (22-30); Chloride 105 mmol/L (98-107); Estimated CRCL calculation 126 ml/min; Estimated Glomerular Filt Rate > 60; Glucose 168 mg/dL (65-110); Potassium 4.2 mmol/L (3.4-5.0); Sodium 138 mmol/L (137-145); Total Protein 7.2 g/dL (6.3-8.2)
[2025-03-06 22:34] VITALS: BP 127/87; PULSE 78; RESP 18; O2SAT 99
[2025-03-06 22:41] VITALS: O2SAT 98
--- OUTSIDE RECORDS SUMMARY | 2025-03-06 22:58 | XMS_ITS | Continuity of Care Document ---
Author Organization [facility] Address [address] [facility] [address] [place] [address] Phone Care Team Providers Care Actuary Clerk Name Role Phone Administrative, Provider Unavailable Unavail [...] Date Provider Providers Copied on Encounter [facility], [address], [id number], [place] tel:[phone] [facility] No Information 6 Administrati ve Provider. [address], [id number], [place]. tel:[phone] Office/outpa tient visit,est, low [facility], [address], [id number], [place] tel:[phone] [facility] right knee symptoms (chief complaint) Unilateral primary osteoarthritis , right knee 6 Boby Pak. [address], [id number], [place]. tel:[phone] [facility], [address], [id number], [place] tel:[phone] [facility] right knee (chief complaint) Unilateral primary osteoarthritis , right knee 6 Boby Pak. [address], [id number], [place]. tel:[phone] [facility], [address], [id number], [place] tel:[phone] [facility] Right Knee (chief complaint) Unilateral primary osteoarthritis , right knee 6 Boby Pak. [address], [id number], [place]. tel:[phone] [facility], [address], [id number], [place] tel:[phone] [facility] Bilateral Knees (chief complaint) Unilateral primary osteoarthritis , right knee 6 Boby Pak. [address], [id number], [place]. tel:[phone] [facility], [address] [address], [place], [place], [id number], [place] tel:[phone] [facility] Unilateral primary osteoarthritis , right knee 6 Boby Pak. [address] [facility], [address] [address], [place], [place], [id number], [place]. tel:[phone] Office/outpa tient visit,est, low [facility], [address] [address], [place], [place], [id number], [place] tel:[phone] [facility] right knee symptoms (chief complaint) Pain in right kneeARTHROPATH Y NOS-L/LEG Jan- 6 Boby Pak. [address], [id number], [place]. tel:[phone] Office/outpa tient visit,est, [facility], [address] [address], [place], [place], [id number], [place] tel:[phone] [facility] Other spondylosis, thoracic region Fe 6 Haris Du. [address], [id number], [place]. tel:[phone] Office/outpa tient visit,est, [facility], [address], [id number], [place] tel:[phone] [facility] Pain in thoracic spine 5 Haris Du. [address] [address], [place], [place], [id number], [place]. tel:[phone] Office/outpa tient visit,est, [facility], [address] [place] [address], [id number], [place] tel:[phone] [facility] WC- right knee injury (chief complaint) Pain in right knee Sep- 5 Boby Pak. [address] [facility], [facility] [address], [place], [place], [id number], [place]. tel:[phone] Office/outpa tient visit,est, [facility], [address] [address], [place], [place], [id number], [place] tel:[phone] [facility] MRI results - right knee (chief complaint) Pain in right knee 5 Boby Pak. [address] [facility] 100, [place], [place], [id number], [place]. tel:[phone] [facility], [address] [address], [place], [place], [id number], [place] tel:[phone] [facility] Pain in right knee 5 [facility]. [address] [place] [address], [address], [place], [place], [id number], [place]. tel:[phone] Referring Provider: Pasha Escobedo, [facility]0 [facility] [address], [place], [address] . tel:[phone] Office/outpa tient visit,est, [facility], [address] [place] [address], [place], [place], [id number], [place] tel:[phone] [facility] right knee pain (chief complaint) Pain in right knee 5 Boby Pak. [address] [facility], [facility] 100, [place], [place], [id number], [place]. tel:[phone] Office/outpa tient visit,new, [facility], [address] [address], [place], [place], [id number], [place] tel:[phone] [facility] SPRAIN THORACIC REGIONPAIN IN THORACIC SPINETHORACIC SPONDYLOSIS 3 Kuldip Esparza. [address] [facility], [facility] 100, [place], [place], [id number], [place]. tel:[phone] Referring Provider: Italia Barnes, [address] [facility] [address], [place], [address] . tel:[phone] Office/outpa tient visit,est, [facility], [address] [address], [place], [place], [id number], [place] tel:[phone] [facility] PAIN IN THORACIC SPINETHORACIC SPONDYLOSIS 3 Haris Florian. [address] [facility], [address] [address], [place], [place], [id number], [place]. tel:[phone] Office/outpa tient visit,est, [facility], [address] [address], [place], [place], [id number], [place] tel:[phone] [facility] thoracic spine pain (chief complaint) PAIN IN THORACIC SPINETHORACIC SPONDYLOSIS 3 Haris Du. [address] [address], [place], [place], [id number], [place]. tel:[phone] Office/outpa tient visit,est, [facility], [address] [address], [place], [place], [id number], [place] tel:[phone] [facility] PAIN IN THORACIC SPINETHORACIC SPONDYLOSIS 3 Ab[place] Italia. [address] [facility], [address] [address], [place], [place], [id number], [place]. tel:[phone] Office/outpa tient visit,est, [facility], [address] [address], [place], [place], [id number], [place] tel:[phone] [facility] thoracic spine (chief complaint) PAIN IN THORACIC SPINEBackacheT HORACIC SPONDYLOSIS 3 [place] Italia. [address] [facility], [address] [address], [place], [place], [id number], [place]. tel:[phone] [facility], [address] [address], [place], [place], [id number], [place] tel:[phone] [facility] LATERAL EPICONDYLITIS 1 Boby Pak. [address] [facility], [address], [place], [place], [id number], [place]. tel:[phone] [facility], [address] [address], [place], [place], [id number], [place] tel:[phone] [facility] LATERAL EPICONDYLITIS Fe- 1 Boby Pak. [address] [facility], [address], [place], [place], [id number], [place]. tel:[phone] [facility], [address] [address], [place], [place], [id number], [place] tel:[phone] [facility] LATERAL EPICONDYLITIS 0 1 Boby Pak. [address] [address], [place], [place], [id number], [place]. tel:[phone] [facility], [address] [address], [place], [place], [id number], [place] tel:[phone] [facility] LATERAL EPICONDYLITIS 3 1 Boby Pak. [address] [address], [place], [place], [id number], [place]. tel:[phone] Office/outpa tient visit,[facility], [address], [id number], [place] tel:[phone] [facility] JOINT PAIN-UP/ARMLAT ERAL EPICONDYLITIS 0 7 1 Boby Pak. [address] [facility], [address], [place], [place], [id number], [place]. tel:[phone] Office/outpa tient visit,est, [facility], [address] [address], [place], [place], [id number], [place] tel:[phone] [facility] LATERAL EPICONDYLITISJ OINT PAIN-UP/ARM Jul-2 2-201 0 Boby Pak. [address] [facility], [address], [place], [place], [id number], . tel:[phone] Office/outpa tient visit,est, [facility], [address], [id number], tel:[phone] [facility] No Information 9 Boby Pak. [address] [address], [place], [place], [id number], [place]. tel:[phone] Office/outpa tient visit,[facility], [address], [id number], tel:[phone] [facility] No Information 7 Boby Pak. [address] [address], [place], [place], [id number], [place]. tel:[phone] Referring Provider: Ophelia Owen [address] [place] [address], [address]. tel:[phone] Office/outpa tient visit,[facility], [address], [id number], [place] tel:[phone] [facility] No Information 6 Boby Pak. [address], [id number], . tel:[phone] Referring Provider: Ophelia Owen [address], [address]. tel:[phone] Family History Family Member Type Diagnosis Age At Onset Problem (finding) Family history of Heart trouble Mother Problem (finding) Arthritis Mother Problem (finding) Diabetes mellitus Mother Problem (finding) hypertension Immunizations Vaccine Date Status Comments Flu (split) (3 yrs or older) administered Source: Other Provider Flu (split) (3 yrs or older) refused Source: Source Unspecified Payers Payer name Insurance type Covered republican ID Authoriza tion(s) No Information Social History [...] but did not. 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
--- OUTSIDE RECORDS SUMMARY | 2025-03-06 22:58 | XMS_ITS | Referral Summary ---
Author Organization [facility] [address] Address [address] [place] [address] Care Team Providers Care Autocad Name Role Phone Alvaro Garcia MD Primary Care Provider Adri Aldrich DPT Unavailable [phone] Encounters Date Type Department Care Team Description 02/14/2025 Orders Only [facility] Otolaryngology [address] [place] [address], [facility] [address] [place] [address] Sara Jeronimo RMA Benign paroxysmal positional vertigo, unspecified laterality (Primary Dx) 02/01/2025 4:00 PM CDT Therapy [facility] Physical Therapy [address] [place] [phone] Adri Aldrich DPT Benign paroxysmal vertigo, unspecified laterality (Primary Dx) 01/24/2025 2:00 PM CDT - 01/24/2025 11:59 PM CDT Hospital Encounter [address] [address] Discharge Disposition: Discharge to home or self care 01/19/2025 8:00 AM CDT Therapy [facility] Physical Therapy [address] [place] [phone] Adri Aldrich DPT Benign paroxysmal vertigo, unspecified laterality (Primary Dx) 01/07/2025 Plan of Care Documentation [facility] Physical Therapy [address] [place] [phone] 01/05/2025 9:00 AM CDT Therapy [facility] Physical Therapy [address] [place] [address] Adri Aldrich, DPMarilou Benign paroxysmal vertigo, unspecified [...] on file Legal Sex 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 MANAGER Gender Identity Male 08/20/2020 7:37 AM 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 MANAGER Sexual Orientation Choose not to disclose 2019 9:09 AM 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 MANAGER 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 This test was developed and its performance characteristics determined by [facility] in a manner consistent with CLIA requirements. This test has not been cleared or approved by the U.S. Food and Drug Administration. Interpretive Data Testing performed by: [facility], [place] [address]. Blood 01/24/2025 2:00 PM CDT 01/24/2025 8:05 PM CDT Mikayla GUERRA - 01/27/2025 11:12 AM CDT sent 3.0 mls metal free K2EDTA whole blood in original container us [employer] MIXING PICKER TENDER LAB BLOOD ORDERABLES Final Res ult KARUNA CROW One [facility] Department [place] [address] [place] ref Lab from Last [address] [facility] CHOICE PLUS [facility] CHOICE PLUS [facility] PLUS [facility] Care Teams Autocad Relationship Specialty Start Date End Date Alvaro Garcia MD [address] [place] [address] PCP - General 07/06/17 Adri Aldrich DPT [address] [facility] [address] [place] [address] Physical Therapist Physical Therapy 07/31/22
--- OUTSIDE RECORDS SUMMARY | 2025-03-06 22:58 | XMS_ITS | Continuity of Care Document ---
Author Organization [employer] Address [address] [place] [address] Phone Care Team Providers Care Hay Farmer Name Role Phone Ophelia Owen MD Unavailable Unavailable Allergies, Adverse Reactions, Alerts Substance Reaction Status Criticality oxycodone BEAUTY OPERATOR APPRENTICE Active No Information levofloxacin BEAUTY OPERATOR APPRENTICE Active No Information ciprofloxacin BEAUTY OPERATOR APPRENTICE Active No Information CIPROFLOXACIN HCL BEAUTY OPERATOR APPRENTICE Active No Informa tion dextromethorphan BEAUTY OPERATOR APPRENTICE Active No Informat ion Medications Medication Instructions Dosage Effective Dates (start - stop) Status Comments LISINOPRIL 40 MG TABLET TAKE ONE TABLET BY MOUTH ONCE DAILY, APPT./LABS DUE EVERY 6 MO - Active ALPRAZOLAM 0.5 MG TABLET take 1 tablet (0.5MG) by mouth TID as needed for anxiety. - Active Pharmacy = [facility]: Fax: ZOFRAN ODT 4 mg Tab, [...] Diagnoses Date Provider Providers Copied on Encounter [employer], [address], [place], [place], [address] , [place] tel: [phone] [facility] No Information 3 Brayden Jacinto. [address] [facility], [address], [place], [place], [address]. tel:[phone] [facility], [address], [place], [place], [address] , [place] tel: [phone] [facility] No Information 3 Brayden Jacinto. [address] [facility], [address], [place], [place], [address]. [phone] [facility], [address], [place], [place], [address] , [place] tel: [phone] [facility] Acute pharyngitis 3 Brayden Jacinto. [address] [facility], [address], [place], [place], [address]. tel:[phone] Referring Provider: Ophelia Owen [address] [place] [address] Suite [facility], [place], [address] . tel:[phone] [facility], [address], [place], [place], [address] , [place] tel: [phone] [facility] Abdominal pain, epigastricGeneraliz ed anxiety disorder 3 Brayden Jacinto. [address] [facility], [address], [place], [place], [address]. tel:[phone] Referring Provider: Ophelia Owen [address] [place] [address] [address], [place], [address] . tel:[phone] [facility], [address], [place], [place], [address] , [place] tel:[phone] [facility] Unspecified essential hypertensionAllergi c rhinitis, cause unspecifiedAnxiety state, unspecifiedASTHMA,U NSPECIFIED TYPE, UNSPECIFIED 2 Brayden Jacinto. [address] [facility], [address], [place], [place], [address]. tel:[phone] Referring Provider: Ophelia Owen [address] [facility] [address], [place], [address] . tel:[phone] [facility], [address], [place], [address] , [place] tel: [phone] [facility] No Information 2 Brayden Jacinto. [address] [facility], [facility] [address], [place], [place], [address]. [phone] [facility], [address], [place], [place], [address] , [place] tel: [phone] [facility] Lump or mass in breastScreening for lipoid disorders Jan-0 2 Brayden Jacinto. [address] [facility], [place] [address], [place], [place], [address]. [phone] Referring Provider: Ophelia Owen, [address] [place] [address], [place], [address] . tel:[phone] [facility], [address], [place], [place], [address] , [place] tel: [phone] [facility] No Information 0 2 Brayden Jacinto. [address] [facility], [place] [address], [place], [place], [address]. tel:[phone] [facility], [address], [place], [address] , [place] tel: [phone] [facility] HYPERTENSION NOS 1 Conversion Doctor. [address] [facility], [place], [address], [place]. [facility], [address], [place], [address] , [place] tel: [phone] [facility] CHRONIC OBST ASTHMA NOSDECREASED LIBIDOFAM HX-DIABETES MELLITUSALLERGIC RHINITIS NOS 1 Brayden Antunez [address] [facility], [place] [address], [place], [place], [address]. [phone] [facility], [address], [place], [address] , [place] tel:[phone] [facility] ASTHMA NOS Feb- 1 Brayden Antunez [address] [facility], [place] [address], [place], [place], [address]. tel:[phone] [employer], [address], [place], [place], [address] , [place] tel: [phone] Castillo No Information 2-200 8 Brayden Hussein [facility], [place] [address], [place], [place], [address]. tel:[phone] [employer], [address], [place], [address] , [place] tel: [phone] [facility] No Information 4200 8 Brayden Hussein [facility], [place] [address], [place], [place], [address]. tel:[phone] [employer], [address], [place], [place], [address] , [place] tel: [phone] [facility] ANXIETY STATE NOS Sep-0 [address] [place] [address], [place] [address], [place], [place], [address]. tel:[phone] [employer], [address], [place], [address] , [place] tel: [phone] [facility] OBSTRUCTIVE SLEEP APNEA Dec-0 2-200 6 Brayden Antunez [address] [place] [address], [place] [address], [place], [place], [address]. tel:[phone] [employer], [address], [place], [place], [address] , [place] tel: [phone] [facility] OBESITY NOS 3200 [address] Brayden Antunez [address] [place] [address], [place] [address], [place], [place], [address]. tel:[phone] [employer], [address], [place], [address] , [place] tel: [phone] [facility] FAM HX-ISCHEM HEART DIS 8200 5 Brayden Antunez [address] [place] [address], [place] [address], [place], [place], [address]. tel:[phone] Family History Family Member Type Diagnosis Age At Onset Problem (finding) Family history of osteo arthritis Problem (finding) Family history of coronary arteriosclerosis Family h/o Problem (finding) DIABETES MELLITUS Family h/o Problem (finding) ISCHEMIC HEART DISEASE( IHD) Problem (finding) Family history of Diabe ky mellitus Payers Payer name Insurance type Covered alliance party ID Authoriza tironni(s) BCBS INACTIVE ANTHEM [employer]IANCE [id number] 1 Social History Type Description Quantity Date [...]
--- OUTSIDE RECORDS SUMMARY | 2025-03-06 22:58 | XMS_ITS | Encounter Summary ---
Author Organization [facility] Address [address] [place] [address] Care Team Providers Care Check Weigher Name Role Phone Unavailable Primary Care Provider Unavailabl e Encounter Details Date Type Department Care Team (Late st Contact Info) Description 02/22/2023 Lab Requisition [facility] D[facility] Lab [address] [facility], 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 Billing Codes Specimen Charges Stain Charges 47121 1 3 1:28 PM CDT DERMATOPATHOLOGY LABORATORY Embedded Images 3 1:28 PM CDT DERMATOPATHOLOGY LABORATORY Pathology/Cytolo gy TISSUE SPECIMEN FROM SKIN / Unknown 02/22/2023 8:45 AM CDT 02/22/2023 12:41 PM CDT us Savannah Ware DO LAB - PATHOLOGY/CYTOLOGY ORDERABLES Final Result DERMATOPATHOLOGY LABORATORY [facility] - Department of Dermatology [address], [address] [phone] documented in this encounter Visit Diagnoses Not on filedocumented in this encounter
--- OUTSIDE RECORDS SUMMARY | 2025-03-06 22:58 | XMS_ITS | Clinical Summary ---
Author Organization [facility] [address] Address [address] [place] [address] Care Team Providers Care State Federal Relations Deputy Director Name Role Phone Alvaro Garcia MD Primary [...] Care Team Description 02/14/2025 Orders Only [facility] Otolaryngology [address] [place] [address], [facility] [address] [place] [address] Sara Jeronimo RMA Benign paroxysmal positional vertigo, unspecified laterality (Primary Dx) 02/01/2025 4:00 PM CDT Therapy [facility] Physical Therapy [address] [place] [phone] Adri Aldrich DPT Benign paroxysmal vertigo, unspecified laterality (Primary Dx) 01/24/2025 2:00 PM CDT - 01/24/2025 11:59 PM CDT Hospital Encounter [facility] [address] [place] [address] Discharge Disposition: Discharge to home or self care 01/19/2025 8:00 AM CDT Therapy [facility] Physical Therapy [address] [place] [phone] Adri Aldrich DPT Benign paroxysmal vertigo, unspecified laterality (Primary Dx) 01/07/2025 Plan of Care Documentation [facility] Physical Therapy [address] [place] [phone] 01/05/2025 9:00 AM CDT Therapy [facility] Physical Therapy [address] [place] [phone] Adri Aldrich DPT Benign paroxysmal vertigo, unspecified [...] on file Legal Sex Male 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 Gender Identity Male 08/20/2020 7:37 AM RUBBER 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 WATER Sexual Orientation Choose not to disclose 2019 9:09 AM RUBBER GOODS TESTER WATER 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 This test was developed and its performance characteristics determined by [facility] in a manner consistent with CLIA requirements. This test has not been cleared or approved by the U.S. Food and Drug Administration. Interpretive Data Testing performed by: [facility], [place] [address]. Blood 01/24/2025 2:00 PM CDT 01/24/2025 8:05 PM CDT Mikayla [facility] - 01/27/2025 11:12 AM CDT sent 3.0 mls metal free K2EDTA whole blood in original container us America Ovalles NP LAB BLOOD ORDERABLES Final Res ult [facility] [place] [address] [facility] from Last 3 Months Insurance [facility] CHOICE PLUS [facility] HMO/PPO Address: [address] [address] [place] [address] [facility] CHOICE PLUS Member Subscriber Plan / Payer (Ef fective 2019-Present) Name:Anthony Jones Relation to Subscriber:Self Name:Anthony Jones Payer ID:[id number] ([facility]) Type:[facility] HMO/PPO Address: [address] Member Subscriber Plan / Payer (Ef fective 2018-Present) Name:Anthony Jones Relation to Subscriber:Spouse Name:POPPY JONES Date of :1964 (Home) Address: [address] [place], [place] [id number] Payer ID:[id number] ([facility]) Type: OTHER Address: [address] [place] [address] [facility] CHOICE PLUS [facility] HMO/PPO Address: [address] [address] [place] [address] [facility] HMO/PPO Address: [address] Care Teams State Federal Relations Deputy Director Relationship Specialty Start Date End Date Alvaro Garcia MD [address] [facility] [address] [place], [place] [id number] PCP - General 07/06/17 Adri Aldrich DPT [address] [facility] [address] [facility] [address] [place] [address] Physical Therapist Physical Therapy 07/31/22
--- OUTSIDE RECORDS SUMMARY | 2025-03-06 22:58 | XMS_ITS | Encounter Summary ---
Author Organization [facility] Address [address] [place] [address] Care Team Providers Care Academic Program Specialist Name Role Phone Unavailable Primary Care Provider Unavailabl e Encounter Details Date Type Department Care Team (Late st Contact Info) Description 12/04/2005 Outpatient Historical [facility] [place] 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
--- OUTSIDE RECORDS SUMMARY | 2025-03-06 22:58 | XMS_ITS | Clinical Summary ---
Author Organization [facility] Address [address] 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
--- OUTSIDE RECORDS SUMMARY | 2025-03-06 22:58 | XMS_ITS | CONTINUITY OF CARE DOCUMENT ---
Author Name nia kramer Address Unknown Organization [facility] Address [address] [facility] [address] [place] [address] Phone [phone] Care Team Providers Care Health Companion Name Role Phone CARMELLA ANGLIN MD Unavailable [phone] FREEDOM COLORADO MD Unavailable INSURANCE PROVIDERS Payer name Policy type / Coverage type [place] red green party ID [facility] [id number]
--- OUTSIDE RECORDS SUMMARY | 2025-03-06 22:58 | XMS_ITS | Clinical Summary ---
Author Organization [facility] Address [address] [facility] [place] [address] Care Team Providers Care Double End Chucking Machine Operator Name Role Phone Unavailable Primary Care Provider Unavailabl e Source Comments [facility],non-owned Affiliates and Associated Physician Practices is amultiple site organization consisting of ambulatory clinics and hospital sitesin [place], [place], [place] and [place]. This disclosure is being madepursuant to the Care Everywhere program and may not contain all information available regarding this patient. 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
--- NOTE | 2025-03-06 23:38 | ED_ITS ---
HPI - Syncope General Chief Complaint: Syncope Stated Complaint: syncope Time Seen by Provider: 03/06/25 22:49 Source: patient, family and RN notes reviewed Limitations: no limitations History of Present Illness HPI narrative: Patient presents with coughing episodes. He had 3 syncopal episodes today, all when having coughing fits. He confirms he lost consciousness and muscle tone when he was coughing intensely. Finds it difficult to talk when he gets short of breath. Has a history of asthma for which he uses an inhaler, previously weekly but has been using it approxiamtely 10x/day. Feels like his diaphragm is spasming. notes he made a jerking motion during one of these episodes and his face turned red and fell back into the touch but no reported seizure like activity, incontinence of bowel/bladder, or tongue trauma. Has been coughing up yellow/brown sputum. No edema. Has had a CXR and non contrast ct through his PCP. No cardiac history. Has prevoiusly seen a prop and effects designer but not regularly. Upon regaining consciousness (which occurred immediately, no postictal period), he was back to baseline mentally other than being a bit lightheaded. Currently on 2nd round of antibiotics (prescribed by PCP Jose) and has been on 3 rounds of steroids, including tapers. No history of heart failure. Denies chest pain, only tightness. Has been doign breathing treatments. Related Data Home Medications ?Medication ?Instructions ?Recorded ?Confirmed ?Last Taken ?Type aspirin 81 mg tablet,delayed 81 mg PO DAILY 09/07/19 02/02/25 05/30/23 History release (Aspir-Low) ascorbic acid (vitamin C) 1,000 mg 1 g PO DAILY 11/25/20 02/02/25 05/30/23 History tablet multivitamin (Daily Multi-Vitamin 1 tablet PO DAILY 11/25/20 02/02/25 05/30/23 History tablet) omega-3 fatty acids 1,000 mg 1,000 mg PO DAILY 11/25/20 02/02/25 05/30/23 History capsule ibuprofen 600 mg tablet 800 mg PO TID PRN pain 02/02/25 02/02/25 Unknown History Allergies Allergy/AdvReac Type Severity Reaction Status Date / Time levofloxacin Allergy Mild SUICIDAL Verified 03/06/25 20:53 THOUGHTS/HALLUCINATIONS oxycodone Allergy Mild DIZZINESS Verified 03/06/25 20:53 Quinolones Allergy Unknown suicidal Verified 03/06/25 20:53 thoughts/hallucinations metformin AdvReac Unknown malaise Verified 03/06/25 20:53 PMFSH Past Medical History Medical History Dyspnea Diabetes Hypertriglyceridemia Obesity HLD (hyperlipidemia) Lateral epicondylitis of right elbow Headache Dizziness Asthma exacerbation Asthma Essential (primary) hypertension Fatty liver IFG (impaired fasting glucose) Metabolic syndrome BAY (obstructive sleep apnea) Primary osteoarthritis of right knee Pure hyperglyceridemia Surgical History Surgical History History of arthroscopy of right knee Dr Farooq History of left knee replacement (~08/16/18) Dr Farooq History of meniscectomy of left knee (~08/06/17) Hx of meniscectomy of right knee (~06/26/16) History of rectal sphincterotomy (~2009) History of elbow surgery (~2010) History of carpal tunnel release (~2001) Presence of left artificial knee joint Family History Family History Mother Family history of diabetes mellitus in first degree relative Father Family history of coronary artery disease Other Diabetes mellitus Family history of arthritis Social History Social History Social History: Smoking status: Never smoker Second hand tobacco smoke exposure: No Alcohol intake: current Drinks per week: 6 Substance use: never Substance use type: does not use Do You Feel Safe in your Home?: Yes Lack of Transportation: No Lack of Food: Never True Current Housing: I Have Housing Concerned About Future Housing: No Difficulty Paying Gas/Electric Bills: No Difficulty Paying for Meds: No Currently Unemployed: No Education: Associate Degree Difficulty w/ Childcare or Family Care: No Living arrangements: with family Occupation/Education: occupation Gender identity (if verbalized by the patient): Male Sexual Orientation (if Verbalized by the Patient): Straight or Heterosexual Spiritual care concerns: No Exam 2 Narrative: GENERAL: Well-appearing, well-nourished, and in no acute distress. HEAD: Normocephalic, atraumatic. EYES: Non injected, non icteric ENT: Nares clear, no rhinorrhea or epistaxis. Gross auditory acuity intact. No tongue trauma. NECK: Supple. No meningismus. CHEST: Speaking in full sentences though becomes hoarse/winded by end of sentences. Otherwise clear breath sounds bilaterally without appreciable wheezes or crackles or areas of focal consolidation. HEART: Regular rate and rhythm. . ABDOMEN: Obese but Soft, nondistended. EXTREMITIES: Normal range of motion. No lower extremity edema. SKIN: Warm, dry, no rash. NEURO: No focal deficits. Alert and oriented. Answering questions. Following commands. Normal speech without aphasia or dysarthria. Tongue protrudes midline without deviation. PSYCH: Normal mood and affect. Course Vital Signs Vital signs: Vital Signs Temperature 97.2 F L 03/06/25 20:48 Pulse Rate 81 03/06/25 20:48 Respiratory Rate 23 H 03/06/25 20:48 Blood Pressure 165/76 H 03/06/25 20:48 Pulse Oximetry 98 03/06/25 20:48 Oxygen Delivery Room Air 03/06/25 20:48 Temperature 97.2 F L 03/06/25 20:48 Pulse Rate 68 03/07/25 03:55 Respiratory Rate 12 03/07/25 03:55 Blood Pressure 148/95 H 03/07/25 03:55 Pulse Oximetry 98 03/07/25 03:55 Oxygen Delivery Room Air 03/06/25 22:41 MDM - Syncope MDM Narrative Medical decision making narrative: Patient presents with report of 3 syncopal episodes, all in the setting of coughing episodes. COnfirms loss of muscle tone and consciousness but brief and return to baseline. Has been dealing with cough for several weeks, s/p 3 rounds of steroids and on 2nd round of antibiotics. In the ED he is afebrile with VS notable for hypertension and tachypnea. Mild leukocytosis. Hyperglycemia without anion gap acidosis. It does sound that patient's symptoms are a vasovagal response to his coughing episodes in which his intrathoracic pressure likely changes and he is bearing down. D-dimer negative. Will proceed with CT imaging with contrast to further differentiate however will not proceed as CTA. Orthostatic vital signs are appropriate. Discussed patient's work up and the cause of his syncope with him but that no findings on CT to suggst a change in management. Discussed briefly with environmental technician hospitalist TIM Walker but , shared decision making that there does not appear to be an indication for admission given very low likelihood that this is cardiac but rather seems to be straightforward vasovagal and situationally episodic. DIscussed with patietn who verifies understanding. Discussed the poor data behind many cough medications (cough suppressants versus expectorants). Advised honey. INquired if he had found any of the medications to be more benefiicial than others. Not particularly per patient although the codeine containing medication did allow him to sleep a bit which is also an important component of recovering. Will prescribe. Although history of asthma, no clear indication that he is having an asthma exacerbation today. Advised he follow up with PCP and pulmonology; referral / contact information provided. Differential Diagnosis Differential diagnosis: Likely syncope due to orthostatic hypotension, vasovagal syncope (in particular, cough syncope), complete atrioventricular block, pulmonary embolism, dehydration and other (asthma exacerbation; bronthicits; PNA; ) Lab Data Attestation: I reviewed the patient's lab results. 03/06/25 20:58 03/06/25 20:58 Labs: Lab Results 03/06/25 03/07/25 Range/Units 20:58 00:29 WBC 11.1 H (4.5-10.0) K/mm3 RBC 4.60 (4.6-6.20) M/mm3 Hgb 14.5 (14.0-18.0) g/dL Hct 43.9 (42.0-52.0) % MCV 95.4 (80-100) fl MCH 31.5 (26-34) pg MCHC 33.0 (32-36) g/dl RDW 14.0 (11.5-14.5) % Plt Count 204 (150-375) k/mm3 MPV 9.7 (7.4-10.4) fl Immature Gran % (Auto) 3.6 H (0-0.5) % Neut % (Auto) 64.7 (45.5-73.1) % Lymph % (Auto) 24.6 (18.3-44.2) % Evangeline % (Auto) 6.0 (2.6-8.5) % Eos % (Auto) 0.5 (0-4.4) % Baso % (Auto) 0.6 (0.2-1.2) % Lymph # (Auto) 2.73 (0.9-3.2) K/mm3 Evangeline # (Auto) 0.7 H (0.1-0.6) K/mm3 Eos # (Auto) 0.1 (0-0.3) K/mm3 Baso # (Auto) 0.1 (0.0-0.1) K/mm3 Abs Immat Gran (auto) 0.40 H (0.00-0.031) K/mm3 Absolute Neuts (auto) 7.2 H (1.3-6.7) K/mm3 Absolute Nucleated RBC 0.000 (0.0-0.012) K/mm3 Nucleated RBC % 0.0 (0.0-0.2) % D-Dimer 0.28 (<0.48) ug/mL Sodium 138 (137-145) mmol/L Potassium 4.2 (3.4-5.0) mmol/L Chloride 105 (98-107) mmol/L Carbon Dioxide 24 (22-30) mmol/L Anion Gap 9 (4-12) mmol/L BUN 22 H (9-20) mg/dL Creatinine 0.69 L (0.7-1.3) mg/dL Estim Creat Clear Calc 126 ml/min Estimated GFR > 60 (59 - ) Glucose 168 H (65-110) mg/dL Calcium 9.0 (8.4-10.2) mg/dL Total Bilirubin 0.6 (0.2-1.3) mg/dL AST 38 (17-59) U/L ALT 46 (6-50) U/L Alkaline Phosphatase 44 (38-126) U/L Troponin I < 0.012 (0.000-0.034) ng/mL NT-Pro-B Natriuret Pep 150 H (19.9-100) pg/mL Total Protein 7.2 (6.3-8.2) g/dL Albumin 4.1 (3.5-5.1) g/dL Imaging Data Radiologist's impression: CT Chest with Contrast Stat Rad: No focal consolidation, pleural effusion or pneumothorax. Heart within normal limits. No acute pulmonary embolism. Thyroid within normal limits. Mediastinum and lymph nodes within normal limits. Superior abdomen within normal limits. Musculoskeletal within normal limits. ECG Data EKG #1: Attestation: I personally reviewed and interpreted this ECG as follows: ECG completion date: 03/06/25 ECG completion time: 20:52 Interpretation: Normal sinus rhythm at a rate of 82 beats per minute. OK interval 155. QRS 104. QT/QTC 363/402. Borderline left axis deviation as QRS is positive in 1, negative in 3 and AVF, and trending towards negative in 2. T-wave inversion in lead 3 but otherwise upright in normal in contiguous inferior leads 2 and AVF no other T-wave inversion Discharge Plan Discharge Clinical Impression: Hyperglycemia due to diabetes mellitus, Cough syncope, Bronchitis Patient Disposition: Home Condition: Stable Instructions: Antibiotic Form, Syncope (DC), Acute Bronchitis (ED), Managing Diabetes During Sick Days (ED), Chronic Cough (ED), Diabetic Hyperglycemia (ED) Additional Instructions: As we discussed, you can continue taking medications were prescribed and additional medication has been prescribed. The name of a voice pathologist is listed below. Call for follow-up appointment. Follow-up with your primary care physician. Return to the emergency department any new, worsening, or unmanaged symptoms Patient Language: South Korean Prescriptions: New codeine-guaifenesin 10-100 mg/5 mL liquid 5 ml PO Q6H Qty: 120 0RF No Action amlodipine 5 mg tablet 5 mg PO DAILY Qty: 30 2RF ibuprofen 600 mg tablet 800 mg PO TID PRN (Reason: pain) prednisone 10 mg tablet 10 mg PO DIRECTED 12 Days Qty: 30 0RF Rx Instructions: Take 4 tabs x 3 days, 3 tabs x3 days, 2 tabs x3 days, and 1 tab x3 days. aspirin [Aspir-Low] 81 mg tablet,delayed release (DR/EC) 81 mg PO DAILY multivitamin [Daily Multi-Vitamin] Tablet 1 tablet PO DAILY ascorbic acid (vitamin C) 1,000 mg tablet 1 g PO DAILY omega-3 fatty acids 1,000 mg capsule 1,000 mg PO DAILY (DME) blood-glucose meter [Accu-Chek Guide Glucose Meter] Misc See Rx Instructions .Route Qty: 1 0RF Rx Instructions: test qam fasting (DME) Accu-Chek Guide test strips Strip See Rx Instructions .Route Qty: 100 3RF Rx Instructions: test qam fasting (DME) lancets [Accu-Chek Softclix Lancets] Misc See Rx Instructions .Route Qty: 100 3RF Rx Instructions: test qam fasting alprazolam [Xanax] 0.5 mg tablet 0.5 mg PO DAILY PRN (Reason: anxiety) Qty: 30 0RF hydrocodone-acetaminophen 5-325 mg tablet 1 - 2 tablet PO Q12H PRN (Reason: pain) Qty: 20 0RF doxycycline hyclate 100 mg capsule 100 mg PO BID 10 Days Qty: 20 0RF acetaminophen 500 mg capsule 1,000 mg PO Q6H PRN (Reason: pain) Qty: 30 0RF albuterol sulfate 2.5 mg /3 mL (0.083 %) solution for nebulization 2.5 mg inhalation Q4-6H PRN (Reason: shortness of breath or wheezing) Qty: 180 2RF fluticasone propion-salmeterol [Advair Diskus] 100-50 mcg/dose blister with device 1 inh inhalation Q12H Qty: 60 2RF fluticasone propionate 50 mcg/actuation spray,suspension 1 spray intranasal Q12H Qty: 16 0RF Rx Instructions: administer into each nostril lisinopril 40 mg tablet See Rx Instructions .ROUTE .COMPLEX Qty: 90 2RF Dose Instruction: TAKE 1 TABLET BY MOUTH EVERY DAY Rx Instructions: TAKE 1 TABLET BY MOUTH EVERY DAY albuterol sulfate [ProAir HFA] 90 mcg/actuation HFA aerosol inhaler 1 - 2 puff inhalation Q4H PRN (Reason: shortness of breath or wheezing) Qty: 6.7 2RF azithromycin 250 mg tablet See Rx Instructions PO .COMPLEX Qty: 6 0RF Rx Instructions: For 250 mg dose pack: take 500 mg today (day 1), then 250 mg for 4 days (days 2-5) PO codeine-guaifenesin 10-100 mg/5 mL liquid 5 ml PO Q6H Qty: 118 0RF omeprazole 20 mg capsule,delayed release(DR/EC) 20 mg PO DAILY Qty: 14 0RF Follow-up/Referrals: Alvaro Garcia MD [Primary Care Provider] - Patric Cerda MD [Physician] - (Pulmonology) Stand Alone Forms: Work/School Release IP Time of Disposition: 03:44
[2025-03-07 00:09] VITALS: BP 123/79; PULSE 66; RESP 17; O2SAT 97
[2025-03-07 00:29] LABS: NT Pro B Type Natriuretic Pept 150 pg/mL (19.9-100); Troponin I < 0.012 ng/mL (0.000-0.034)
[2025-03-07 00:40] VITALS: BP 116/63; BP 121/68; PULSE 70; PULSE 77
[2025-03-07 00:42] VITALS: BP 122/79; PULSE 83
[2025-03-07 01:06] LABS: D Dimer 0.28 ug/mL (<0.48)
[2025-03-07] MEDS: BENZONATATE 100 MG CAPSULE PO (01:33)
[2025-03-07 02:03] VITALS: BP 127/80; PULSE 67; RESP 13; O2SAT 96
[2025-03-07 03:55] VITALS: BP 148/95; PULSE 68; RESP 12; O2SAT 98
== END 2025-03-07 03:58 | disposition home or self-care (01) ==
PROVIDERS: Emergency Medicine; Emergency Provider Student in an Organized Health Care Education/Training Program; PCP Family Medicine
DX: R55 Syncope and collapse (principal); E11.65 Type 2 diabetes mellitus with hyperglycemia; J45.909 Unspecified asthma, uncomplicated; I10 Essential (primary) hypertension; E78.1 Pure hyperglyceridemia; E66.9 Obesity, unspecified; Z68.41 Body mass index [BMI] 40.0-44.9, adult; G47.33 Obstructive sleep apnea (adult) (pediatric); M17.11 Unilateral primary osteoarthritis, right knee; Z96.652 Presence of left artificial knee joint; R94.31 Abnormal electrocardiogram [ECG] [EKG]; Z79.82 Long term (current) use of aspirin; Z79.899 Other long term (current) drug therapy
CPT/HCPCS: 36415; 71046; 71260; 80053; 83880; 84484; 85025; 85380; 93005; 99284; A9270; Q9967

== ENCOUNTER 2025-03-24 10:03 | Outpatient (CLI) | payer OTHER, SELFPAY | END 2025-03-24 10:04 | disposition home or self-care (01) | PROVIDERS: PCP Family Medicine; Visit Provider Family Medicine | DX: R05.9 Cough, unspecified (principal) | CPT/HCPCS: 87798 ==